=== PATIENT | female | born 1960 | race Caucasian/White ===

== ENCOUNTER → 2017-01-10 | Outpatient (CLI) | payer BC ==
--- NOTE | 2017-01-15 08:32 | MM ---
Reason for exam: screening (asymptomatic). Last mammogram was performed 7 years and 7 months ago. History: Patient is postmenopausal. Family history of breast cancer in sister at age 55. Physical Findings: A clinical breast exam by your physician is recommended on an annual basis and results should be correlated with mammographic findings. MG 3D Screening Mammo W/Cad Bilateral CC and MLO view(s) were taken. There are scattered fibroglandular densities. There is no discrete abnormality. ASSESSMENT: Benign, BI-RAD 2 RECOMMENDATION: Routine screening mammogram of both breasts in 1 year.
== END | disposition home or self-care (01) ==
LOC: RADMAMWWP 07:30
PROVIDERS: ATTEND Family Medicine
DX: Z12.31 Encounter for screening mammogram for malignant neoplasm of breast (principal)
CPT/HCPCS: 77063; G0202

== ENCOUNTER → 2020-10-05 | Outpatient (CLI) | payer BC ==
--- NOTE | 2020-10-05 12:14 | CT ---
EXAMINATION TYPE: CT soft tissue neck w con DATE OF EXAM: 10/05/2020 COMPARISON: None HISTORY: Rt sided neck swelling from ear to under chin, difficulty swallowing CT DLP: 387.9 mGycm CONTRAST: Patient injected with 100 mL of Isovue 300. TECHNIQUE: Axial images at 3 mm thick sections. Reconstructed images in the coronal plane and sagitt al plane are reviewed. FINDINGS: Limited CT sections are obtained the lung apices. The lung apices appear clear. CT neck: The torus tubarius and fossa of Rosenmuller are normal. Buttonhole Maker spaces are normal. Para nasal sinuses and mastoid air cells are clear. Parotid glands appear normal and symmetrical. There is some mild limitation due to beam hardening art ifact from piercings at this level. Dental hardware also causes limitation at the mandible and maxill a. Submandibular glands, are normal. Parapharyngeal spaces are normal. There are multiple small right supraclavicular and right neck lymph nodes. The largest measures up to 0.9 cm. Series 3 image 47. There is an enlarged jugulodigastric lymph node posterior to the right walker bmandibular gland measuring 1.8 cm transverse. Additional small lymph nodes within the submandibular space and posterior triangles are noted. The hypopharynx appears within normal limits. Vocal cord level appear symmetrical. Thyroid as visualized is normal. Osseous structures are normal. IMPRESSIONS: 1. Enlarged right cervical lymph node measuring 1.8 cm transverse. This lies behind the right submand ibular gland. 2. Additional small lymph nodes bilaterally greater on the right.
== END | disposition home or self-care (01) ==
LOC: RADCTMAIN 08:32
PROVIDERS: ATTEND Family Medicine
DX: R59.9 Enlarged lymph nodes, unspecified (principal)
CPT/HCPCS: 70491; Q9967

== ENCOUNTER → 2020-10-25 | Outpatient (CLI) | payer BC ==
--- NOTE | 2020-10-25 19:25 | CT ---
EXAMINATION TYPE: CT abdomen pelvis wo con DATE OF EXAM: 10/25/2020 HISTORY: abdominal pain, weight loss. CT DLP: 390 mGycm. Automated Exposure Control for Dose Reduction was Utilized. TECHNIQUE: CT scan of the abdomen and pelvis is performed without oral or IV contrast. COMPARISON: NONE FINDINGS: Within the limitations of a non-contrast study, the following observations are made. LUNG BASES: No significant abnormality is appreciated. LIVER/GB: Single dependent small gallstone in gallbladder axial image 60. PANCREAS: No significant abnormality is seen. SPLEEN: No significant abnormality is seen. ADRENALS: No significant abnormality is seen. KIDNEYS: No renal stones or hydronephrosis seen bilaterally. BOWEL: Suboptimal evaluation of bowel without enteric contrast. No suspicious small or large bowel di latation is present. Slightly low-lying cecum into right pelvis. GENITAL ORGANS: Uterus surgically absent or markedly atrophic. Single right-sided pelvic phlebolith a xial image 128. Additional small calcified phleboliths inferiorly noted. LYMPH NODES: Some prominent but subcentimeter mid to lower abdominal mesenteric and retroperitoneal l ymph nodes extending into bilateral groin region. No definitive abnormal greater than 1 cm lymph node s identified. OSSEOUS STRUCTURES: Multilevel facet arthropathy in the mid to lower lumbar spine. Mild to moderate s purring and disc space narrowing in the visualized mid to lower thoracic spine. OTHER: Moderate calcified plaque of the abdominal aorta extends into iliac branch vessels. IMPRESSION: Prominent but subcentimeter lymph nodes bilaterally without definitive abnormal greater t dennis 1 cm lymph nodes. No concerning mass clearly seen on noncontrast images. No acute findings eviden t.
== END ==
LOC: RADCTMAIN 17:40
PROVIDERS: ATTEND Family Medicine
DX: R59.0 Localized enlarged lymph nodes (principal)
CPT/HCPCS: 74176

== ENCOUNTER → 2020-10-31 | Outpatient (CLI) | payer BC ==
--- NOTE | 2020-10-31 08:33 | CTL ---
EXAMINATION TYPE: CT Low Dose Lung DATE OF EXAM ORDERED: 10/31/2020 HISTORY: Long-term tobacco use.. Lung cancer screening CT DLP: 79.[address] CTDI: 2.4 mGy Automated exposure control for dose reduction was used. SCREENING VISIT: Initial study COMPARISON: None TECHNIQUE: Low dose computed tomography scan was performed through the chest at 1 mm thick sections a nd reconstructed images in the coronal plane at [address] DIAGNOSTIC QUALITY: Satisfactory FINDINGS: LUNG NODULES: None. LUNGS: COPD: Severity: Mild Fibrosis: Severity: Mild Lymph nodes: No greater than 1 cm Other findings: None RIGHT PLEURAL SPACE: Effusion: None Calcification: None Thickening: None Pneumothorax: None LEFT PLEURAL SPACE: Effusion: None Calcification: None Thickening: None Pneumothorax: None HEART: Heart Size: Normal Coronary calcification: None Pericardial effusion: None OTHER FINDINGS: Upper abdomen: None Bony thorax: Exaggerated kyphosis with mild/moderate multilevel spurring Supraclavicular region: Prominent but subcentimeter right-sided lymph nodes noted. For reference ther e is 1.1 x 0.9 cm lymph node axial image 14 series 3. Other: None IMPRESSION: No suspicious nodules. CT LUNG RAD AND CT CHEST RECOMMENDATION: Lung-Rad 1 Negative: Continue annual screening with LDCT in 12 months. S Modifier (other clinically significant findings): S Prominent but subcentimeter right supraclavicular lymph nodes. This was discussed on recent neck CT w ith additional prominent and enlarged more superior right-sided neck lymph nodes. Neoplasm needs to b e considered. Suspect primary right tongue base mass seen best coronal image 27 with adjacent slightl y more inferior right neck adenopathy discussed in report. Advise ENT referral to further evaluate.
== END ==
LOC: RADCTMAIN 07:39
PROVIDERS: ATTEND Family Medicine
DX: Z12.2 Encounter for screening for malignant neoplasm of respiratory organs (principal); Z87.891 Personal history of nicotine dependence
CPT/HCPCS: 71271

== ENCOUNTER 2020-12-14 09:02 | Day surgery (SDC) | payer BC ==
[2020-12-12 10:53] VITALS: BMI 26.4
[~2020-12-14 09:02] MED LIST: DEXAMETHASONE SOD PHOSPHATE 4 MG/ML 1 ML VIAL IV ONE; FAMOTIDINE 20 MG/2 ML VIAL IV PRN; HYDROmorphone 0.5 MG/0.5 ML SYRINGE IVP PRN; LACTATED RINGERS 1,000 ML IV SCH; LIDOCAINE 1% (10MG/ML) FOR IV START INTRADERMA PRN; MIDAZOLAM 2 MG/2 ML VIAL IV PRN; ONDANSETRON 4 MG/2 ML VIAL IVP PRN
[2020-12-14] MEDS ORDERED: MIDAZOLAM 2 MG/2 ML VIAL ONE (10:14)
[2020-12-14] MEDS ORDERED: PROPOFOL 10 MG/ML 20 ML VIAL IV ONE (10:14)
[2020-12-14] MEDS ORDERED: fentaNYL (PF) 50 MCG/ML 2 ML AMP ONE (10:14)
[2020-12-14] MEDS ORDERED: LIDOCAINE 1% INJ 10MG/ML (20 ML MDV) ONE (10:14)
[2020-12-14] MEDS ORDERED: LIDOCAINE 1%-EPI 1:100,000 20 ML VIAL SQ ONE (10:35)
[2020-12-14] MEDS ORDERED: BACITRACIN ZINC 500 UNIT/GM OINT 28.4 GM TUBE TOPICAL ONE ×2 (10:40→11:13)
--- NOTE | 2020-12-14 11:22 | P.OP ---
Date of Procedure: 12/14/20 Preoperative Diagnosis: Right cervical lymphadenopathy Postoperative Diagnosis: Same Procedure(s) Performed: Excision right cervical lymph node deep Anesthesia: NIELS Surgeon: John Montalvo Estimated Blood Loss (ml): 5 Pathology: other (Right cervical lymph node) Condition: stable Disposition: PACU Indications for Procedure: This is a 60-year-old white female with a chronically enlarged right jugular chain lymph node. Fine-needle aspiration had relatively heterogenous cells h owever low-grade lymphoma could not be ruled out Operative Findings: Approximately 3.5 x 2.5 cm right mid jugular chain node which was well encapsulated firm and fixed to the surrounding tissues although was able to dissected from the surrounding tissues grossly entirely Description of Procedure: The patient was brought in the operative suite and placed in a supine position. The patient underwent induction of general anesthesia with laryngeal mask airway intubation without difficulty. The patient was prepped and draped in usual aseptic fashion after being positioned with a head donut and shoulder roll. A transverse incision was made over the mass in existing skin crease which was in the cervical area and carried sharply through the skin and subcutaneous tissue as well as platysma layer. Mass was noted at this point. This appeared to be consistent with a large cervical lymph node. This was initially dissected from the anterior aspect of the sternocleidomastoid muscle. It was dissected directly on the capsule from the surrounding tissue grossly entirely down to the external jugular vein and was dissected from this. The spinal accessory nerve was noted to be superior to the node and was left intact. Once the node was dissected from the surrounding tissue hemostasis was noted to be good. The wound was irrigated with sterile normal saline and hemostasis remained good. The platysma and deep subcutaneous layers were closed with inverted interrupted 3-0 Vicryl suture. The subcutaneous tissue was closed with 4-0 Vicryl suture and the skin closed with running locking 4-0 Prolene suture. Bacitracin ointment and sterile dressings were. The patient was allowed to emerge from general anesthesia having tolerated procedure well and was extubated in the operating suite and transferred to the postop recovery area in satisfactory condition. The specimen sent fresh for histology, touch preps, flow cytometry as this grossly suspicious for lymphoma.
[2020-12-14 11:32] VITALS: TEMP 97.1
[2020-12-14] MEDS ORDERED: KETOROLAC 15 MG/ML 1 ML VIAL IVP ONE (11:32)
[2020-12-14] MEDS ORDERED: LACTATED RINGERS 1,000 ML IV ONE (12:12)
[2020-12-14 12:50] VITALS: BP 128/82; PULSE 63; RESP 16
== END 2020-12-14 13:23 | disposition home or self-care (01) ==
LOC: OR 09:02
PROVIDERS: ATTEND Otolaryngology
DX: C83.11 Mantle cell lymphoma, lymph nodes of head, face, and neck (principal); I10 Essential (primary) hypertension; F17.200 Nicotine dependence, unspecified, uncomplicated; Z90.710 Acquired absence of both cervix and uterus; Z90.89 Acquired absence of other organs; Z81.8 Family history of other mental and behavioral disorders; Z82.49 Family history of ischemic heart disease and other diseases of the circulatory system; Z82.61 Family history of arthritis; Z80.3 Family history of malignant neoplasm of breast; Z80.0 Family history of malignant neoplasm of digestive organs; Z83.3 Family history of diabetes mellitus; Z84.1 Family history of disorders of kidney and ureter; Z79.891 Long term (current) use of opiate analgesic; Z79.899 Other long term (current) drug therapy
CPT/HCPCS: 88342; 88307; 88341; 38510; J2250; J1100; J2405; J0690; J2001; J3010; J1885; J2704; J1170

== ENCOUNTER → 2020-12-30 | Outpatient (CLI) | payer BC ==
--- NOTE | 2021-01-02 13:28 | PE ---
Nuclear medicine PET/CT HISTORY: Mantle cell lymphoma right neck, initial, C 83.18 Patient received 11.4 mCi F-18 FDG intravenously in delayed scanning was performed from skull base to the mid thighs. Localization and attenuation correction CT scan was performed. Correlation to CT scan of the neck 10/05/2020, CT abdomen pelvis 10/25/2020 Chest and neck: Right-sided neck lymphadenopathy is present, there is mild associated uptake, node de ep to the sternocleidomastoid muscle posteriorly on the right shows an SUV of 3.1, multiple nodes at the level of the hyoid bone along the right neck show SUV approximately 3.3. Axillary uptake is also mild, nodes are somewhat more prominent in the right axilla than on the left, SUV 2.1 on the right, 2 .3 on the left. There is no evident lung mass. No pleural or pericardial effusion. ABDOMEN: No retroperitoneal or pelvic adenopathy is present. There is some mesenteric nodes present, no significant uptake. Inguinal nodes present on the left showing mild uptake, SUV 1.4. There is no a scites. Uterus and adnexal structures are not seen. Osseous structures show no suspicious uptake. IMPRESSION: Findings consistent with patient's history of lymphoma.
== END | disposition home or self-care (01) ==
LOC: RADPETMAIN 10:35
PROVIDERS: ATTEND Internal Medicine Hematology & Oncology
DX: C83.18 Mantle cell lymphoma, lymph nodes of multiple sites (principal)
CPT/HCPCS: 78815; A9552

== ENCOUNTER 2021-01-03 12:16 | Day surgery (SDC) | payer BC ==
[2020-12-30 13:42] VITALS: BMI 26.9
[~2021-01-03 12:16] MED LIST changes: -DEXAMETHASONE SOD PHOSPHATE 4 MG/ML 1 ML VIAL IV ONE; -FAMOTIDINE 20 MG/2 ML VIAL IV PRN; -HYDROmorphone 0.5 MG/0.5 ML SYRINGE IVP PRN; -LIDOCAINE 1% (10MG/ML) FOR IV START INTRADERMA PRN; -MIDAZOLAM 2 MG/2 ML VIAL IV PRN
[2021-01-03 12:20] VITALS: TEMP 96.8
[2021-01-03] MEDS ORDERED: LIDOCAINE 1% (10MG/ML) FOR IV START INTRADERMA ONE (12:26)
[2021-01-03] MEDS ORDERED: PROPOFOL 10 MG/ML 20 ML VIAL IV ONE (12:36)
[2021-01-03 13:17] LABS: Basophils # (A) 0.1 k/uL (0-0.2); Basophils % (A) 1 %; Eosinophils # (A) 0.1 k/uL (0-0.7); Eosinophils % (A) 1 %; HCT 43.5 % (34.0-46.0); Lymphocytes # (A) 2.2 k/uL (1.0-4.8); Lymphocytes % (A) 28 %; MCH 30.7 pg (25.0-35.0); MCHC 32.2 g/dL (31.0-37.0); MCV 95.2 fL (80.0-100.0); Mean Platelet Volume 8.5; Monocytes # (A) 0.5 k/uL (0-1.0); Monocytes % (A) 7 %; Neutrophils # (A) 4.8 k/uL (1.3-7.7); Neutrophils % (A) 61 %; Platelet Count 238 k/uL (150-450); RBC 4.57 m/uL (3.80-5.40); Reticulocyte % 1.2 % (0.5-2.0); WBC 7.8 k/uL (3.8-10.6)
[2021-01-03 13:33] VITALS: BP 118/66; PULSE 78; RESP 20
--- NOTE | 2021-01-03 16:08 | PCN ---
PROCEDURE NOTE DATE OF SERVICE: January 03, 2021. PROCEDURE: Bone marrow aspirate and biopsy. INDICATION: Staging for Mantle cell lymphoma. DESCRIPTION OF PROCEDURE: After obtaining consent from the patient, the procedure was performed in the endoscopy suite under general anesthesia performed by anesthesia team. The patient was put on the left lateral decubital position. The right posterior superior iliac crest was localized. Skin was prepped with ChloraPrep. All sterile procedures were followed and 2 mL of 2% Xylocaine was used for local anesthesia anesthetic. Monoject needle was inserted and 15 mL of aspirate and about 2 cm core biopsy was obtained without any difficulties. Pressure applied afterwards. There was negligible blood loss. Patient tolerated procedure very well without any immediate complications. MMODL / IJN: [id number] /
== END 2021-01-03 13:52 | disposition home or self-care (01) ==
LOC: OR 12:16
PROVIDERS: ATTEND Internal Medicine Hematology & Oncology
DX: C83.10 Mantle cell lymphoma, unspecified site (principal); C85.90 Non-Hodgkin lymphoma, unspecified, unspecified site; I10 Essential (primary) hypertension; M79.7 Fibromyalgia; Z90.89 Acquired absence of other organs; Z90.710 Acquired absence of both cervix and uterus; Z98.890 Other specified postprocedural states; Z85.528 Personal history of other malignant neoplasm of kidney; Z80.0 Family history of malignant neoplasm of digestive organs; Z80.8 Family history of malignant neoplasm of other organs or systems; Z80.3 Family history of malignant neoplasm of breast; Z86.19 Personal history of other infectious and parasitic diseases; F17.210 Nicotine dependence, cigarettes, uncomplicated
CPT/HCPCS: 85025; 85045; 38222; J2704

== ENCOUNTER → 2021-01-20 | Outpatient (CLI) | payer BC ==
--- NOTE | 2021-01-20 20:38 | US ---
EXAMINATION TYPE: US venous doppler duplex LE DATE OF EXAM: 01/20/2021 4:28 PM COMPARISON: NONE CLINICAL HISTORY: R22.42 Swelling of left lower limb,R22.41 Swelling of right. SIDE PERFORMED: Bilateral TECHNIQUE: The lower extremity deep venous system is examined utilizing real time linear array sonog mirna with graded compression, doppler sonography and color-flow sonography. VESSELS IMAGED: Common Femoral Vein Deep Femoral Vein Greater Saphenous Vein * Femoral Vein Popliteal Vein Small Saphenous Vein * Proximal Calf Veins (* superficial vessels) Right Leg: Negative for DVT Left Leg: Negative for DVT IMPRESSION: Grayscale, color doppler, spectral doppler imaging performed of the deep veins of the lo wer extremities. There is normal flow, compressibility, vascular waveforms.
== END | disposition home or self-care (01) ==
LOC: RADUSWWP 15:49
PROVIDERS: ATTEND Internal Medicine Hematology & Oncology
DX: R22.43 Localized swelling, mass and lump, lower limb, bilateral (principal)
CPT/HCPCS: 93970

== ENCOUNTER → 2021-03-31 | Outpatient (CLI) | payer BC ==
--- NOTE | 2021-04-03 06:27 | PE ---
EXAMINATION TYPE: PET CT fusion skull to thigh DATE OF EXAM: 03/31/2021 COMPARISON: Prior PET/CT December 30, 2020 HISTORY: Mantle cell lymphoma right neck diagnosed surgical excision December 14, 2020 treated with alexus motherapy through March 25. TECHNIQUE: Following the intravenous administration of 8.29 mCi of F-18 FDG, whole body images are p erformed from the skull base to the midthigh. Images are reviewed on the computer in the coronal, ax ial, and sagittal planes. Reconstructed rotating images are created on independent workstation and r eviewed on the computer. A localization and attenuation correction CT is performed in conjunction w ith the PET scan. Blood glucose level equals 104 SCAN: Subsequent Scan FINDINGS: Mean SUV mediastinum: 0.73 Mean SUV liver: 1.87 SKULL BASE AND NECK: No suspicious hypermetabolic lymph nodes on current study. Prominent right neck and supraclavicular adenopathy redemonstrated though diminished in size and number from prior study. CHEST, MEDIASTINUM, AND HILAR REGION: Interval improvement in size and number of prominent bilateral axillary lymph nodes. No abnormal hypermetabolic uptake currently. No new areas of abnormal hypermeta bolic uptake throughout the thorax. ABDOMEN AND PELVIS: No new areas of abnormal hypermetabolic uptake. Normal excretion. OSSEOUS STRUCTURES: No new areas of abnormal hypermetabolic uptake. OTHER CT: Facet arthropathy lower lumbar spine slight scoliotic curvature. Moderate calcified plaque distal abdominal aorta extends into the iliac branch vessels. IMPRESSION: Complete positive treatment response, no new or residual areas of abnormal hypermetabolic uptake or adenopathy.
== END | disposition home or self-care (01) ==
LOC: RADPETMAIN 13:31
PROVIDERS: ATTEND Internal Medicine Hematology & Oncology
DX: C83.11 Mantle cell lymphoma, lymph nodes of head, face, and neck (principal)
CPT/HCPCS: 78815; A9552

== ENCOUNTER 2021-04-25 08:56 | Inpatient (IN) | payer BC ==
[2021-04-25] MEDS ORDERED: LIDOCAINE 1% INJ 10MG/ML (20 ML MDV) SQ ONE (10:42)
[2021-04-25 11:13] LABS: Basophils % (A) 1 %; Eosinophils # (A) 0.1 k/uL (0-0.7); Eosinophils % (A) 2 %; HCT 36.9 % (34.0-46.0); HGB 12.9 gm/dL (11.4-16.0); Lymphocytes # (A) 0.4 k/uL (1.0-4.8); Lymphocytes % (A) 6 %; MCH 34.7 pg (25.0-35.0); MCV 99.1 fL (80.0-100.0); Mean Platelet Volume 9.5; Monocytes # (A) 0.5 k/uL (0-1.0); Monocytes % (A) 8 %; Neutrophils # (A) 5.1 k/uL (1.3-7.7); Neutrophils % (A) 82 %; Platelet Count 157 k/uL (150-450); RBC 3.72 m/uL (3.80-5.40); RDW 12.9 % (11.5-15.5); WBC 6.3 k/uL (3.8-10.6)
[2021-04-25 11:20] LABS: ALT 23 U/L (4-34); AST 28 U/L (14-36); African American GFR (CKD) >90 (>60 ml/min/1.73 sqM); Albumin/Globulin Ratio 1.7; Alkaline Phosphatase 116 U/L (38-126); Anion Gap 6 mmol/L; Blood Urea Nitrogen 18 mg/dL (7-17); Calcium 9.7 mg/dL (8.4-10.2); Carbon Dioxide 30 mmol/L (22-30); Chloride 102 mmol/L (98-107); Globulin 2.4 g/dL; Glucose 99 mg/dL (74-99); Non-African American GFR(CKD) >90 (>60 ml/min/1.73 sqM); Phosphorus 3.6 mg/dL (2.5-4.5); Potassium 4.6 mmol/L (3.5-5.1); Sodium 138 mmol/L (137-145); Total Bilirubin 0.4 mg/dL (0.2-1.3); Total Protein 6.4 g/dL (6.3-8.2); Uric Acid 4.2 mg/dL (3.7-7.4)
[2021-04-25 11:30] LABS: INR 0.9 (<1.2); Prothrombin Time 9.5 sec (9.0-12.0)
[2021-04-25] MEDS ORDERED: NON FORMULARY DRUG (Epinephrine (Auto Inject) 0.3 MG/0.3 ML Each) IM PRN (12:06)
[2021-04-25] MEDS: prednisoLONE ACETATE 1% OPHTH DROPS 5 ML BTL BOTH EYES SCH ×4 (12:28→21:37)
[2021-04-25] MEDS: SODIUM CHLORIDE 0.9% 1,000 ML IV SCH ×2 (12:29→21:36)
--- NOTE | 2021-04-25 13:26 | IR ---
PICC LINE PLACEMENT: HISTORY: Infection requiring long-term antibiotic therapy PROCEDURE: Ultrasound and fluoroscopic guidance of PICC line placement. COMPLICATIONS: None ANESTHESIA: 1. 1% Lidocaine locally. FINDINGS/TECHNIQUE: The procedure was explained to the patient. The risks, complications, benefits and alternatives were discussed and any questions were answered. Informed consent was obtained. The patient was placed supine on the fluoroscopic table and prepped and draped in the usual sterile fash ion. Utilizing a 21 gauge needle and sonographic and fluoroscopic guidance, access in the right bas ilic vein was achieved and there is placement of a 0.018 guidewire. The vein is patent. A 4-F sheat h was placed over the guidewire. The guidewire and dilator were removed and a 4-F. PICC line was wilmar michael through the sheath with the tip at the level of the SVC. The sheath was removed, the catheter wa s flushed and sutured into position. The patient was stable throughout the procedure and remained st able upon discharge from the Department of Radiology. The vein puncture was patent under ultrasound. A chau scale image was obtained to document patency of the vein punctured. All elements of the maximal barrier technique were utilized. FLUOROSCOPY TIME: 0.3 minutes and one images submitted IMPRESSION: Successful PICC line placement under ultrasound and fluoroscopic guidance.
[2021-04-25] MEDS: NON FORMULARY DRUG (Buprenorphine Hcl/Naloxone Hcl [Suboxone 8 Mg-2 Mg Sl Film] 1 EACH Fil SUBLINGUAL SCH ×2 (14:45→21:31)
[2021-04-25] MEDS ORDERED: methylPREDNISolone SOD SUCCI 125 MG/2 ML VIAL IV ONE (15:00)
[2021-04-25] MEDS ORDERED: diphenhydrAMINE 50 MG/ML 1 ML VIAL IVP ONE (15:00)
[2021-04-25] MEDS ORDERED: ONDANSETRON 16 MG in SODIUM CHLORIDE 0.9% 50 ML IVPB SCH (15:00)
[2021-04-25] MEDS ORDERED: FAMOTIDINE 20 MG/2 ML VIAL IV SCH (15:00)
[2021-04-25] MEDS ORDERED: RITUXIMAB PVVR IV ONE (16:00)
[2021-04-25] MEDS ORDERED: SODIUM CHLORIDE 0.9% IV ONE (16:00)
--- NOTE | 2021-04-25 20:45 | P.HPIM ---
History of Present Illness H&P Date: 04/25/21 Chief Complaint: Timed Chemotherapy Clare is a pleasant female known to our practice, under the care of Dr. Corea (Primary Oncologist) for treatment of Mantel Cell Lymphoma. She is status post treatment with Bendamustine and Rituxan and PET scan in March revealed complete response after 3 cycles, therefore she is now admitted for systemic treatment with Rituxan and Cytarabine. Plan for Stem cell with Dr. Diamond post 3 cycles is goal. She has no complaints when seen this am, she is overall feeling good. at bedside. Picc line order has been placed. Review of Systems All systems: negative Constitutional: Reports as per HPI Past Medical History Past Medical History: Cancer, Fibromyalgia, GERD/Reflux, Hypertension, Sleep Apnea/CPAP/BIPAP Additional Past Medical History / Comment(s): Mantel cell lymphoma, CLAUDIA-no treatment since wt loss, suboxone is for fibromyalgia pain. History of Any Multi-Drug Resistant Organisms: None Reported Past Surgical History: Appendectomy, Bladder Surgery, Hysterectomy, Orthopedic Surgery Additional Past Surgical History / Comment(s): 12/14/20 excision R cervical lymph node, 01/03/21 BMA with biopsy, bilateral knee arthroscopies, R foot surgery for plantar fascitis, eye surgery for strabismus, colonoscopy. Past Anesthesia/Blood Transfusion Reactions: No Reported Reaction Smoking Status: Former smoker - Past Family History Father Sister(s) Family Medical History: Cancer Additional Family Medical History / Comment(s): father - kidney cancer survivor Brother(s) Family Medical History: Cancer Additional Family Medical History / Comment(s): colon cancer survivor Sister(s) Family Medical History: Cancer Additional Family Medical History / Comment(s): breast cancer survivor Mother Family Medical History: No Reported History Additional Family Medical History / Comment(s): Mother is 87yrs old. Medications and Allergies Home Medications Medication Instructions Recorded Confirmed Type Buprenorphine HCl/Naloxone HCl 1 film SL TID 12/12/20 04/25/21 History [Suboxone 8 mg-2 mg Sl Film] Chlorthalidone [Hygroton] 25 mg PO DAILY 12/12/20 04/25/21 History Lisdexamfetamine Dimesylate 100 mg PO DAILY 12/12/20 04/25/21 History [Vyvanse] Eszopiclone [Lunesta] 3 mg PO HS 12/30/20 04/25/21 History EPINEPHrine (Auto Inject) [Epipen] 0.3 mg IM ONCE PRN 04/25/21 04/25/21 History Nicotine 14Mg/24Hr Patch [Habitrol 1 patch TRANSDERM DAILY 04/25/21 04/25/21 History 14Mg/24Hr Patch] Allergies Allergy/AdvReac Type Severity Reaction Status Date / Time bee venom protein (honey bee) Allergy Anaphylaxis Verified 04/25/21 10:06 Physical Exam Vitals: Vital Signs Temp Pulse Resp BP Pulse Ox 04/25/21 11:25 98.1 F 68 16 117/69 98 04/25/21 10:10 97.9 F 70 14 109/70 99 Intake and Output 04/24/21 04/25/21 04/25/21 22:59 06:59 14:59 Other: Weight 72.167 kg - Constitutional General appearance: cooperative, no acute distress - EENT Eyes: EOMI, PERRLA ENT: NA/AT, normal oropharynx - Neck Neck: normal ROM - Respiratory Respiratory: bilateral: CTA - Cardiovascular Rhythm: regular - Gastrointestinal General gastrointestinal: normal bowel sounds, soft - Integumentary Integumentary: pale - Neurologic Neurologic: CNII-XII intact - Musculoskeletal Musculoskeletal: generalized weakness - Psychiatric Psychiatric: A&O x's 3, appropriate affect, intact judgment & insight Results CBC & Chem 7: 04/25/21 10:17 04/25/21 10:17 Labs: Abnormal Lab Results - Last 24 Hours (Table) 04/25/21 04/25/21 Range/Units 10:17 10:17 RBC 3.72 L (3.80-5.40) m/uL Lymphocytes # 0.4 L (1.0-4.8) k/uL BUN 18 H (7-17) mg/dL Thrombosis Risk Factor Assmnt - DVT/VTE Prophylaxis DVT/VTE Prophylaxis: Mechanical Prophylaxis ordered - Choose All That Apply Any of the Below Risk Factors Present?: Yes Each Factor Represents 1 point: Age 41-60 years Other Risk Factors: Yes Each Risk Factor Represents 2 Points: Malignancy Other congenital or acquired thrombophilia - If yes, enter type in comment: No Thrombosis Risk Factor Assessment Total Risk Factor Score: 3 Thrombosis Risk Factor Assessment Level: Moderate Risk Assessment and Plan (1) Mantle cell lymphoma Current Visit: Yes Status: Acute Code(s): C83.10 - MANTLE CELL LYMPHOMA, UNSPECIFIED SITE SNOMED Code(s): 004124805 Plan: Rituxan and Cytarabine Day one to begin CBC, CMP, Mag, Phos, LDH Daily Increased activity PPI and VTE Medical Management Picc Line Placement Physician Attest: I have completed the full history and physical and developed the full impression and plan, agree with dictation.
[2021-04-25] MEDS: CYTARABINE IV SCH (21:36)
[2021-04-25] MEDS: SODIUM CHLORIDE 0.9% IV SCH (21:36)
[2021-04-25] MEDS: TEMAZEPAM 15 MG CAP PO SCH (22:55)
[2021-04-26] MEDS: SODIUM CHLORIDE 0.9% 1,000 ML IV SCH ×2 (06:02→16:54)
[2021-04-26 07:37] LABS: Basophils % (A) 0 %; Eosinophils % (A) 0 %; HCT 36.7 % (34.0-46.0); HGB 12.7 gm/dL (11.4-16.0); Lymphocytes # (A) 0.5 k/uL (1.0-4.8); Lymphocytes % (A) 4 %; MCH 34.7 pg (25.0-35.0); MCHC 34.7 g/dL (31.0-37.0); Mean Platelet Volume 10.8; Monocytes # (A) 0.8 k/uL (0-1.0); Monocytes % (A) 7 %; Neutrophils # (A) 10.2 k/uL (1.3-7.7); Neutrophils % (A) 88 %; Platelet Count 138 k/uL (150-450); RBC 3.67 m/uL (3.80-5.40); RDW 12.8 % (11.5-15.5); WBC 11.7 k/uL (3.8-10.6)
[2021-04-26] MEDS ORDERED: LORazepam 2 MG/ML INJ IV PRN (08:28)
[2021-04-26] MEDS ORDERED: ONDANSETRON 4 MG/2 ML VIAL IVP PRN (08:28)
[2021-04-26] MEDS: NON FORMULARY DRUG (Buprenorphine Hcl/Naloxone Hcl [Suboxone 8 Mg-2 Mg Sl Film] 1 EACH Fil SUBLINGUAL SCH ×3 (08:56→20:58)
[2021-04-26] MEDS: NON FORMULARY DRUG (Lisdexamfetamine Dimesylate [Vyvanse] 50 MG Capsule) PO SCH (08:57)
[2021-04-26] MEDS: CHLORTHALIDONE 25 MG TAB PO SCH (09:21)
[2021-04-26] MEDS: NICOTINE 14MG/24HR PATCH TRANSDERM SCH (09:21)
[2021-04-26] MEDS: prednisoLONE ACETATE 1% OPHTH DROPS 5 ML BTL BOTH EYES SCH ×4 (09:21→21:03)
[2021-04-26] MEDS ORDERED: ONDANSETRON 16 MG in SODIUM CHLORIDE 0.9% 50 ML IVPB SCH (09:30)
[2021-04-26] MEDS ORDERED: FAMOTIDINE 20 MG/2 ML VIAL IV SCH (10:30)
[2021-04-26] MEDS: SODIUM CHLORIDE 0.9% IV SCH ×2 (10:38→21:36)
[2021-04-26] MEDS: CYTARABINE IV SCH ×2 (10:38→21:36)
[2021-04-26] MEDS: SALT AND SODA MOUTHWASH 1,000 ML PO SCH ×4 (11:38→21:03)
[2021-04-26] MEDS: SENNOSIDES-DOCUSATE SODIUM 1 EACH TAB PO SCH ×2 (11:43→20:57)
--- NOTE | 2021-04-26 12:14 | P.PN ---
Subjective Progress Note Date: 04/26/21 Principal diagnosis: Mantel Cell Lymphoma, Timed Consolidation Chemo. Pre Stem Cell Transplant Tolerating treatment well this far. Increase in supportive medications prior to each chemotherapy dose ordered, neuro checks and salt and soda rinse ordered. Awaiting for CMP to result today Objective - Vital Signs Vital signs: Vital Signs Temp 98.3 F 04/26/21 04:00 Pulse 71 04/26/21 04:00 Resp 18 04/26/21 04:00 BP 109/62 04/26/21 04:00 Pulse Ox 95 04/26/21 04:00 Intake & Output 04/25/21 04/26/21 04/26/21 18:59 06:59 18:59 Intake Total 368.940 5802 Balance 700.685 5028 Weight 72.167 kg Intake: Intake, IV Titration 276.343 3040 Amount Cytarabine/Pf 3,000 mg 500 Cytarabine/Pf 500 mg In Sodium Chloride 0.9% 500 ml 500 ml @ 185 mls/hr IV Q12H [facility] Rx#:[id number] Ondansetron 16 mg In 50 Sodium Chloride 0.9% 50 ml @ 232 mls/hr IVPB Q24H [facility] Rx#:[id number] Sodium Chloride 0.9% 1, 500 1200 000 ml @ 100 mls/hr IV . Q10H [facility] Rx#:[id number] riTUXimab PVVR 700 mg In 332.391 Sodium Chloride 0.9% 500 ml 500 ml @ Titrate IV . Q0M [facility] Rx#:[id number] Oral 500 Other: Voiding Method Toilet Toilet # Voids 3 4 - Exam Alert and Oriented x3 NAD Neck:Supple ENT: Dry Mucous Membranes, no thrush or mucocytitis Heart: RRR Lungs: CTA Bilateral, No increased effort Abdomen: Soft, ND, NT Skin: No rashes Extremities: No Edema, Positive Pulses No Palpable Lymph Nodes Psych: Anxious Neuro: Non-Focal - Labs CBC & Chem 7: 04/26/21 06:57 04/25/21 10:17 Labs: Abnormal Lab Results - Last 24 Hours (Table) 04/25/21 04/25/21 04/26/21 Range/Units 10:17 10:17 06:57 WBC 11.7 H (3.8-10.6) k/uL RBC 3.72 L 3.67 L (3.80-5.40) m/uL Plt Count 138 L (150-450) k/uL Neutrophils # 10.2 H (1.3-7.7) k/uL Lymphocytes # 0.4 L 0.5 L (1.0-4.8) k/uL BUN 18 H (7-17) mg/dL Assessment and Plan (1) Mantle cell lymphoma Current Visit: Yes Status: Acute Code(s): C83.10 - MANTLE CELL LYMPHOMA, UNSPECIFIED SITE SNOMED Code(s): 711131098 Plan: Rituxan and Cytarabine Day one to begin CBC, CMP, Mag, Phos, LDH Daily Increased activity PPI and VTE (Pneumatic compression and encourage out of bed and walking) Medical Management Picc Line Placement on 04.25.21 Tolerated day one of treatment well, continue with day 2 Await CMP, Mg, Phos, Uric acid, LDH to result today Encourage patient to continue to walk and increase activity Physician Attest: I have completed the full history and physical and developed the full impression and plan, agree with dictation.
[2021-04-26 13:31] LABS: Magnesium 1.6 mg/dL (1.5-2.4)
[2021-04-26 13:52] LABS: African American GFR (CKD) 93.5 (60.0-200.0); Albumin 3.7 g/dL (3.80-4.90); Albumin/Globulin Ratio 1.95 (1.60-3.17); Anion Gap 4.9 mmol/L (4.00-12.00); Calcium 9.1 mg/dL (8.7-10.3); Carbon Dioxide 28.1 mmol/L (21.6-31.8); Globulin 1.9 g/dL (1.6-3.3); Non-African American GFR(CKD) 80.7 (60.0-200.0); Phosphorus 4.5 mg/dL (2.4-5.1); Potassium 4.4 mmol/L (3.5-5.5); Total Bilirubin 0.3 mg/dL (0.2-1.2); Total Protein 5.6 g/dL (6.2-8.2); Uric Acid 4.3 mg/dL (2.9-7.7)
--- NOTE | 2021-04-26 15:26 | P.CONS ---
History of Present Illness - Reason for Consult Consult date: 04/26/21 Medical management Requesting physician: Kiana Corea - History of Present Illness This is a 60-year-old female with past medical history significant for mantle cell lymphoma who is currently admitted to the hospital for systemic treatment with Rituxan. I was asked to see her for medical management. Patient does not have any complaint at this time. Review of Systems Review of system: 14 points review of systems were obtained and were negative except to what were mentioned in the HPI. Past Medical History Past Medical History: Cancer, Fibromyalgia, GERD/Reflux, Hypertension, Sleep Apnea/CPAP/BIPAP Additional Past Medical History / Comment(s): Mantel cell lymphoma, CLAUDIA-no treatment since wt loss, suboxone is for fibromyalgia pain. History of Any Multi-Drug Resistant Organisms: None Reported Past Surgical History: Appendectomy, Bladder Surgery, Hysterectomy, Orthopedic Surgery Additional Past Surgical History / Comment(s): 12/14/20 excision R cervical lymph node, 01/03/21 BMA with biopsy, bilateral knee arthroscopies, R foot surgery for plantar fascitis, eye surgery for strabismus, colonoscopy. Past Anesthesia/Blood Transfusion Reactions: No Reported Reaction Smoking Status: Former smoker - Past Family History Father Sister(s) Family Medical History: Cancer Additional Family Medical History / Comment(s): father - kidney cancer survivor Brother(s) Family Medical History: Cancer Additional Family Medical History / Comment(s): colon cancer survivor Sister(s) Family Medical History: Cancer Additional Family Medical History / Comment(s): breast cancer survivor Mother Family Medical History: No Reported History Additional Family Medical History / Comment(s): Mother is 87yrs old. Medications and Allergies Home Medications Medication Instructions Recorded Confirmed Type Buprenorphine HCl/Naloxone HCl 1 film SL TID 12/12/20 04/25/21 History [Suboxone 8 mg-2 mg Sl Film] Chlorthalidone [Hygroton] 25 mg PO DAILY 12/12/20 04/25/21 History Lisdexamfetamine Dimesylate 100 mg PO DAILY 12/12/20 04/25/21 History [Vyvanse] Eszopiclone [Lunesta] 3 mg PO HS 12/30/20 04/25/21 History EPINEPHrine (Auto Inject) [Epipen] 0.3 mg IM ONCE PRN 04/25/21 04/25/21 History Nicotine 14Mg/24Hr Patch [Habitrol 1 patch TRANSDERM DAILY 04/25/21 04/25/21 History 14Mg/24Hr Patch] Allergies Allergy/AdvReac Type Severity Reaction Status Date / Time bee venom protein (honey bee) Allergy Anaphylaxis Verified 04/25/21 10:06 Physical Exam Vitals: Vital Signs Temp Pulse Resp BP Pulse Ox 04/26/21 12:00 98.2 F 67 18 116/72 99 04/26/21 08:00 97.9 F 72 18 122/71 96 04/26/21 04:00 98.3 F 71 18 109/62 95 04/26/21 00:00 97.9 F 70 18 112/70 94 L 04/25/21 21:40 98.4 F 64 18 112/74 96 04/25/21 20:00 98.4 F 64 16 121/71 97 04/25/21 19:55 64 18 04/25/21 16:00 97.9 F 64 14 116/71 96 Intake and Output 04/26/21 04/26/21 04/26/21 06:59 14:59 22:59 Intake Total 2200 Balance 2200 Intake: Intake, IV Titration 1700 Amount Cytarabine/Pf 3,000 mg 500 Cytarabine/Pf 500 mg In Sodium Chloride 0.9% 500 ml 500 ml @ 185 mls/hr IV Q12H [facility] Rx#:[id number] Sodium Chloride 0.9% 1, 1200 000 ml @ 100 mls/hr IV . Q10H [facility] Rx#:[id number] Oral 500 Other: # Voids 4 General: The patient is awake and alert, in no distress Eye: there is normal conjunctiva bilaterally. Neck: The neck is supple, there is no JVD. Cardiovascular: Normal S1-S2, no S3-S4, no murmurs. Respiratory: Lungs clear to auscultation bilaterally Gastrointestinal: Abdomen is soft, nontender Musculoskeletal: There is no pedal edema. Neurological:. Speech is normal. Skin: Skin is warm and dry Results CBC & Chem 7: 04/26/21 06:57 04/26/21 06:57 Labs: Abnormal Lab Results - Last 24 Hours (Table) 04/26/21 04/26/21 Range/Units 06:57 06:57 WBC 11.7 H (3.8-10.6) k/uL RBC 3.67 L (3.80-5.40) m/uL Plt Count 138 L (150-450) k/uL Neutrophils # 10.2 H (1.3-7.7) k/uL Lymphocytes # 0.5 L (1.0-4.8) k/uL Glucose 129 H (70-110) mg/dL Alkaline Phosphatase 139 H (41-126) U/L Total Protein 5.6 L (6.2-8.2) g/dL Albumin 3.70 L (3.80-4.90) g/dL Assessment and Plan Assessment: 1. Mantle cell lymphoma currently admitted to the hospital for systemic treatment with Rituxan and cytarabine. Management per hematology 2. Mild Thrombocytopenia Today, I reviewed her medication list and lab work results. Continue current regimen. Thank you very much for the consultation. We will follow-up on the patient closely with you.
[2021-04-26] MEDS: PANTOPRAZOLE 40 MG TABLET PO SCH (16:54)
[2021-04-26] MEDS ORDERED: DEXAMETHASONE SOD PHOSPHATE 10 MG/ML 1 ML VIAL IV ONE (20:00)
[2021-04-26] MEDS: ONDANSETRON 16 MG in SODIUM CHLORIDE 0.9% 50 ML IVPB SCH (20:57)
[2021-04-26] MEDS: FAMOTIDINE 20 MG/2 ML VIAL IV SCH (20:57)
[2021-04-26] MEDS ORDERED: OLANZapine 5 MG TAB PO SCH (21:00)
[2021-04-26] MEDS: TEMAZEPAM 15 MG CAP PO SCH (21:36)
[2021-04-27] MEDS: SODIUM CHLORIDE 0.9% 1,000 ML IV SCH ×2 (01:58→12:13)
[2021-04-27 06:33] LABS: Basophils % (A) 0 %; Eosinophils # (A) 0.1 k/uL (0-0.7); Eosinophils % (A) 1 %; HCT 35.5 % (34.0-46.0); Lymphocytes # (A) 0.4 k/uL (1.0-4.8); Lymphocytes % (A) 8 %; MCH 34.5 pg (25.0-35.0); MCHC 33.9 g/dL (31.0-37.0); MCV 101.7 fL (80.0-100.0); Macrocytosis Slight; Mean Platelet Volume 9.2; Monocytes # (A) 0.5 k/uL (0-1.0); Monocytes % (A) 9 %; Neutrophils # (A) 4.7 k/uL (1.3-7.7); Neutrophils % (A) 81 %; Platelet Count 85 k/uL (150-450); RBC 3.49 m/uL (3.80-5.40); RDW 13.7 % (11.5-15.5); WBC 5.9 k/uL (3.8-10.6)
[2021-04-27] MEDS: PANTOPRAZOLE 40 MG TABLET PO SCH (08:04)
[2021-04-27] MEDS: CHLORTHALIDONE 25 MG TAB PO SCH (08:04)
[2021-04-27] MEDS: SENNOSIDES-DOCUSATE SODIUM 1 EACH TAB PO SCH (08:04)
[2021-04-27] MEDS: NICOTINE 14MG/24HR PATCH TRANSDERM SCH (08:04)
[2021-04-27] MEDS: prednisoLONE ACETATE 1% OPHTH DROPS 5 ML BTL BOTH EYES SCH ×2 (08:05→12:14)
[2021-04-27] MEDS: NON FORMULARY DRUG (Lisdexamfetamine Dimesylate [Vyvanse] 50 MG Capsule) PO SCH (08:05)
[2021-04-27] MEDS: NON FORMULARY DRUG (Buprenorphine Hcl/Naloxone Hcl [Suboxone 8 Mg-2 Mg Sl Film] 1 EACH Fil SUBLINGUAL SCH ×2 (08:05→12:15)
[2021-04-27] MEDS: FAMOTIDINE 20 MG/2 ML VIAL IV SCH (08:05)
[2021-04-27] MEDS: ONDANSETRON 16 MG in SODIUM CHLORIDE 0.9% 50 ML IVPB SCH (08:05)
[2021-04-27] MEDS: SALT AND SODA MOUTHWASH 1,000 ML PO SCH ×2 (08:06→12:13)
[2021-04-27] MEDS: SODIUM CHLORIDE 0.9% IV SCH (09:49)
[2021-04-27] MEDS: CYTARABINE IV SCH (09:49)
[2021-04-27 10:19] LABS: African American GFR (CKD) 93.5 (60.0-200.0); Albumin 3.7 g/dL (3.80-4.90); Albumin/Globulin Ratio 2.31 (1.60-3.17); Anion Gap 2.9 mmol/L (4.00-12.00); Calcium 8.7 mg/dL (8.7-10.3); Carbon Dioxide 30.1 mmol/L (21.6-31.8); Globulin 1.6 g/dL (1.6-3.3); Magnesium 1.6 mg/dL (1.5-2.4); Non-African American GFR(CKD) 80.7 (60.0-200.0); Phosphorus 3.4 mg/dL (2.4-5.1); Potassium 4.1 mmol/L (3.5-5.5); Total Bilirubin 0.4 mg/dL (0.3-1.2); Total Protein 5.3 g/dL (6.2-8.2); Uric Acid 5.2 mg/dL (2.9-7.7)
[2021-04-27 12:03] VITALS: BP 108/67; PULSE 69; RESP 16; TEMP 98.6
--- NOTE | 2021-04-27 23:46 | P.PN ---
Subjective Progress Note Date: 04/27/21 Principal diagnosis: Mantel Cell Lymphoma, Timed Consolidation Chemo. Pre Stem Cell Transplant Objective - Vital Signs Vital signs: Vital Signs Temp 98.7 F 04/27/21 04:00 Pulse 74 04/27/21 04:00 Resp 18 04/27/21 04:00 BP 136/72 04/27/21 04:00 Pulse Ox 98 04/27/21 04:00 Intake & Output 04/26/21 04/27/21 04/27/21 18:59 06:59 18:59 Intake Total 1750 1150 Balance 1750 1150 Intake: Intake, IV Titration 1750 550 Amount Cytarabine/Pf 3,000 mg 500 500 Cytarabine/Pf 500 mg In Sodium Chloride 0.9% 500 ml 500 ml @ 185 mls/hr IV Q12H [facility] Rx#:[id number] Ondansetron 16 mg In 50 Sodium Chloride 0.9% 50 ml @ 232 mls/hr IVPB BID [facility] Rx#:[id number] Ondansetron 16 mg In 50 Sodium Chloride 0.9% 50 ml @ 232 mls/hr IVPB Q24H [facility] Rx#:[id number] Sodium Chloride 0.9% 1, 1200 000 ml @ 100 mls/hr IV . Q10H [facility] Rx#:[id number] Oral 600 Other: Voiding Method Toilet # Voids 3 - Exam Alert and Oriented x3 NAD Neck:Supple ENT: Dry Mucous Membranes, no thrush or mucocytitis Heart: RRR Lungs: CTA Bilateral, No increased effort Abdomen: Soft, ND, NT Skin: No rashes Extremities: No Edema, Positive Pulses No Palpable Lymph Nodes Psych: Anxious Neuro: Non-Focal - Labs CBC & Chem 7: 04/27/21 05:42 04/27/21 05:42 Labs: Abnormal Lab Results - Last 24 Hours (Table) 04/26/21 04/27/21 Range/Units 06:57 05:42 RBC 3.49 L (3.80-5.40) m/uL MCV 101.7 H (80.0-100.0) fL Plt Count 85 L (150-450) k/uL Lymphocytes # 0.4 L (1.0-4.8) k/uL Glucose 129 H (70-110) mg/dL Alkaline Phosphatase 139 H (41-126) U/L Total Protein 5.6 L (6.2-8.2) g/dL Albumin 3.70 L (3.80-4.90) g/dL Assessment and Plan (1) Mantle cell lymphoma Status: Acute Code(s): C83.10 - MANTLE CELL LYMPHOMA, UNSPECIFIED SITE SNOMED Code(s): 598911812 Plan: Rituxan and Cytarabine Day one to begin CBC, CMP, Mag, Phos, LDH Daily Increased activity PPI and VTE (Pneumatic compression and encourage out of bed and walking) Medical Management Picc Line Placement on 04.25.21 Tolerated day one of treatment well, complete treatment today and plan for neulasta in office tomorrow DISCHARGE today
--- NOTE | 2021-04-27 23:48 | P.DS ---
Providers Date of admission: 04/25/21 08:56 Expected date of discharge: 04/27/21 Attending physician: Kiana Corea Consults: 04/26/21 11:33 Consult Physician Routine Consulting Provider: Shefali Gonzalez Consult Reason/Comments: Medical management Do you want consulting provider notified?: Yes Primary care physician: Kurt Singh MD - Discharge Diagnosis(es) (1) Mantle cell lymphoma Status: Acute Hospital Course: Rituxan and Cytarabine followed by neulasta Plan - Discharge Summary Discharge Rx Participant: No New Discharge Prescriptions: Continue Buprenorphine HCl/Naloxone HCl [Suboxone 8 mg-2 mg Sl Film] 1 film SL TID Chlorthalidone [Hygroton] 25 mg PO DAILY Lisdexamfetamine Dimesylate [Vyvanse] 100 mg PO DAILY Eszopiclone [Lunesta] 3 mg PO HS Nicotine 14Mg/24Hr Patch [Habitrol] 1 patch TRANSDERM DAILY Discontinued EPINEPHrine (Auto Inject) [Epipen] 0.3 mg IM ONCE PRN PRN Reason: Anaphylaxis Discharge Medication List Buprenorphine HCl/Naloxone HCl [Suboxone 8 mg-2 mg Sl Film] 1 film SL TID 12/12/20 [History] Chlorthalidone [Hygroton] 25 mg PO DAILY 12/12/20 [History] Lisdexamfetamine Dimesylate [Vyvanse] 100 mg PO DAILY 12/12/20 [History] Eszopiclone [Lunesta] 3 mg PO HS 12/30/20 [History] Nicotine 14Mg/24Hr Patch [Habitrol] 1 patch TRANSDERM DAILY 04/25/21 [History] Follow up Appointment(s)/Referral(s): Kiana Corea MD [STAFF PHYSICIAN] - 05/02/21 11:45 am Patient Instructions/Handouts: Filgrastim (By injection), Non-Hodgkin Lymphoma (DC), Eating During Cancer Treatment (DC), Self Care Measures With Cancer (DC), Mouth Care for the Cancer Patient (DC), Chemo Induced Nausea and Vomiting (DC), Intravenous Chemotherapy (DC), Peripherally Inserted Central Catheters and Midline Catheters (DC) Activity/Diet/Wound Care/Special Instructions: Please come to [facility] at 4:00pm for Filgrastim injection on Saturday, 04/27. Discharge Disposition: HOME SELF-CARE
== END 2021-04-27 17:31 | disposition home or self-care (01) | DRG 847 ==
LOC: 5NMEDONC 08:56
PROVIDERS: ADMIT Internal Medicine Hematology & Oncology; ATTEND Internal Medicine Hematology & Oncology
PROC: B5181ZA Fluoroscopy of Superior Vena Cava using Low Osmolar Contrast, Guidance (ICD-10-PCS; 2021-04-25)
PROC: B548ZZA Ultrasonography of Superior Vena Cava, Guidance (ICD-10-PCS; 2021-04-25)
PROC: 3E0330M Introduction of Antineoplastic, Monoclonal Antibody, into Peripheral Vein, Percutaneous Approach (ICD-10-PCS; 2021-04-25)
PROC: 02HV33Z Insertion of Infusion Device into Superior Vena Cava, Percutaneous Approach (ICD-10-PCS; principal; 2021-04-25 14:50)
DX: Z51.11 Encounter for antineoplastic chemotherapy (principal); C83.10 Mantle cell lymphoma, unspecified site; I10 Essential (primary) hypertension; M79.7 Fibromyalgia; G47.33 Obstructive sleep apnea (adult) (pediatric); D69.6 Thrombocytopenia, unspecified; K21.9 Gastro-esophageal reflux disease without esophagitis; H50.9 Unspecified strabismus; M72.2 Plantar fascial fibromatosis; Z87.891 Personal history of nicotine dependence; Z79.2 Long term (current) use of antibiotics; Z90.710 Acquired absence of both cervix and uterus; Z91.030 Bee allergy status; Z79.899 Other long term (current) drug therapy; Z90.49 Acquired absence of other specified parts of digestive tract; Z96.653 Presence of artificial knee joint, bilateral
CPT/HCPCS: 36573; 80053; 83615; 83735; 84100; 84550; 85025; 85610

== ENCOUNTER → 2021-05-05 | Outpatient (CLI) | payer BC ==
--- NOTE | 2021-05-05 16:03 | CT ---
EXAMINATION TYPE: CT brain wo con DATE OF EXAM: 05/05/2021 COMPARISON: None INDICATION: Lymphoma, headache. Burst vessel in RT eye Stat hold and call for Dr. Corea DLP: 1125.50 mGycm, Automated exposure control for dose reduction was used. CONTRAST: None CT of the brain is performed utilizing 3 mm thick sections through the posterior fossa and 3 mm thick sections through the remaining calvarium. Study is performed within 24 hours of arrival to the hosp ital. No abnormal hyperdensity is present to suggest an acute intracranial hemorrhage. No mass lesion is evident. No acute infarcts are evident. May be a tiny lacunar infarct within the right basal ganglion. Ventricles and sulci are appropriate for the patient age. Paranasal sinuses and mastoid air cells within the [id number] are clear. The globes appear symmetrical. Intraconal and extraconal fat appears unremarkable. No intraocular abn ormalities identified. IMPRESSIONS: 1. No acute intracranial process. 2. Orbits as visualized on this brain study appear unremarkable. Closer evaluation is required, consi sam MRI or CT of the orbits.
== END | disposition home or self-care (01) ==
LOC: RADCTMAIN 15:19
PROVIDERS: ATTEND Internal Medicine Hematology & Oncology
DX: C85.90 Non-Hodgkin lymphoma, unspecified, unspecified site (principal); R51.9 Headache, unspecified
CPT/HCPCS: 70450

== ENCOUNTER 2021-05-16 09:13 | Inpatient (IN) | payer BC ==
[2021-05-16] MEDS ORDERED: NON FORMULARY DRUG (Epinephrine (Auto Inject) 0.3 MG/0.3 ML Each) IM PRN (11:13)
[2021-05-16 11:55] LABS: Anisocytosis Slight; Basophils # (A) 0.1 k/uL (0-0.2); Basophils % (A) 0 %; Eosinophils # (A) 0.1 k/uL (0-0.7); Eosinophils % (A) 1 %; Hyperchromasia Moderate; Lymphocytes # (A) 0.8 k/uL (1.0-4.8); Lymphocytes % (A) 5 %; MCH 34.4 pg (25.0-35.0); Macrocytosis Slight; Mean Platelet Volume 8.2; Monocytes # (A) 1.4 k/uL (0-1.0); Monocytes % (A) 10 %; Neutrophils # (A) 11.3 k/uL (1.3-7.7); Neutrophils % (A) 80 %; Poikilocytosis Slight; RDW 16.9 % (11.5-15.5); WBC 14.2 k/uL (3.8-10.6)
[2021-05-16 11:56] LABS: ALT 21 U/L (4-34); AST 23 U/L (14-36); African American GFR (CKD) >90 (>60 ml/min/1.73 sqM); Albumin 3.6 g/dL (3.5-5.0); Albumin/Globulin Ratio 1.5; Alkaline Phosphatase 292 U/L (38-126); Anion Gap 7 mmol/L; Blood Urea Nitrogen 17 mg/dL (7-17); Calcium 9.1 mg/dL (8.4-10.2); Carbon Dioxide 31 mmol/L (22-30); Chloride 98 mmol/L (98-107); Globulin 2.4 g/dL; Glucose 125 mg/dL (74-99); Non-African American GFR(CKD) >90 (>60 ml/min/1.73 sqM); Phosphorus 3.8 mg/dL (2.5-4.5); Potassium 3.7 mmol/L (3.5-5.1); Sodium 136 mmol/L (137-145); Total Bilirubin 0.3 mg/dL (0.2-1.3); Uric Acid 4.8 mg/dL (3.7-7.4)
[2021-05-16 12:01] LABS: HGB 7.9 gm/dL (11.4-16.0); MCV 95.6 fL (80.0-100.0)
[2021-05-16 12:02] LABS: Platelet Count 592 k/uL (150-450)
[2021-05-16] MEDS: SODIUM CHLORIDE 0.9% 1,000 ML IV SCH ×2 (12:46→19:20)
[2021-05-16] MEDS: NICOTINE 14MG/24HR PATCH TRANSDERM SCH (12:47)
[2021-05-16] MEDS: ONDANSETRON 16 MG in SODIUM CHLORIDE 0.9% 50 ML IVPB SCH (12:48)
[2021-05-16] MEDS: prednisoLONE ACETATE 1% OPHTH DROPS 5 ML BTL BOTH EYES SCH ×4 (12:48→20:57)
[2021-05-16] MEDS ORDERED: FAMOTIDINE 20 MG/2 ML VIAL IVP SCH (13:00)
[2021-05-16] MEDS ORDERED: methylPREDNISolone SOD SUCCI 125 MG/2 ML VIAL IVP ONE (13:00)
[2021-05-16] MEDS ORDERED: diphenhydrAMINE 50 MG/ML 1 ML VIAL IVP ONE (13:00)
--- NOTE | 2021-05-16 13:17 | P.HPIM ---
History of Present Illness H&P Date: 05/16/21 Chief Complaint: Admit for CIVI rituxan and cytarabine for mantle cell lymphoma Pt continuing on treatment of Mantel Cell Lymphoma. She is status post treatment with Bendamustine and Rituxan, PET in March revealed complete response after 3 cycles, therefore she is now admitted for treatment with Rituxan and Cytarabine. Plan for SCT Dr. Diamond after 3 cycles, this is cycle #2. She denied any complications after her last admit, no fevers or significant SE. She feels goo d. Appetite is good. Independently ambulatory. No fevers, oral irritation, N, cough, abd pain or distension, constipation or diarrhea, swelling, rash, bleeding or pain. Review of Systems 14 point ROS is neg except as stated in HPI Past Medical History Past Medical History: Cancer, Fibromyalgia, GERD/Reflux, Hypertension, Sleep Apnea/CPAP/BIPAP Additional Past Medical History / Comment(s): Mantel cell lymphoma, CLAUDIA-no treatment since wt loss, suboxone is for fibromyalgia pain. History of Any Multi-Drug Resistant Organisms: None Reported Past Surgical History: Appendectomy, Bladder Surgery, Hysterectomy, Orthopedic Surgery Additional Past Surgical History / Comment(s): 12/14/20 excision R cervical lymph node, 01/03/21 BMA with biopsy, bilateral knee arthroscopies, R foot surgery for plantar fascitis, eye surgery for strabismus, colonoscopy. Past Anesthesia/Blood Transfusion Reactions: No Reported Reaction Past Psychological History: No Psychological Hx Reported Additional Psychological History / Comment(s): Pt resides with her spouse. She is independent. Smoking Status: Former smoker Past Alcohol Use History: None Reported Additional Past Alcohol Use History / Comment(s): Pt started smoking in 1979 and has been an on/off smoker since. She states she stopped smoking and went to nicotine patch last week. Past Drug Use History: None Reported - Past Family History Father Sister(s) Family Medical History: Cancer Additional Family Medical History / Comment(s): father - kidney cancer survivor Brother(s) Family Medical History: Cancer Additional Family Medical History / Comment(s): colon cancer survivor Sister(s) Family Medical History: Cancer Additional Family Medical History / Comment(s): breast cancer survivor Mother Family Medical History: No Reported History Additional Family Medical History / Comment(s): Mother is 87yrs old. Medications and Allergies Home Medications Medication Instructions Recorded Confirmed Type Buprenorphine HCl/Naloxone HCl 1 film SL TID 12/12/20 05/16/21 History [Suboxone 8 mg-2 mg Sl Film] Chlorthalidone [Hygroton] 25 mg PO DAILY 12/12/20 05/16/21 History Lisdexamfetamine Dimesylate 100 mg PO DAILY 12/12/20 05/16/21 History [Vyvanse] Eszopiclone [Lunesta] 3 mg PO HS 12/30/20 05/16/21 History Nicotine 14Mg/24Hr Patch [Habitrol] 1 patch TRANSDERM DAILY 04/25/21 05/16/21 History EPINEPHrine (Auto Inject) [Epipen] 0.3 mg IM ONCE PRN 05/16/21 05/16/21 History Potassium Chloride ER [K-Dur 20] 20 meq PO DAILY 05/16/21 05/16/21 History Allergies Allergy/AdvReac Type Severity Reaction Status Date / Time bee venom protein (honey bee) Allergy Anaphylaxis Verified 05/16/21 10:13 Physical Exam Vitals: Vital Signs Temp Pulse Resp BP Pulse Ox 05/16/21 09:45 97.7 F 70 17 99/67 100 Intake and Output 05/15/21 05/16/21 05/16/21 22:59 06:59 14:59 Other: Weight 72.09 kg - Constitutional General appearance: average body habitus, cooperative, no acute distress - EENT Eyes: anicteric sclerae, EOMI ENT: hearing grossly normal, normal oropharynx - Neck Neck: no lymphadenopathy - Respiratory Respiratory: bilateral: CTA - Cardiovascular Rhythm: regular Heart sounds: normal: S1, S2 Abnormal Heart Sounds: no systolic murmur, no diastolic murmur, no rub, no S3 Gallop, no S4 Gallop, no click, no other leg Peripheral Edema: bilateral: None - Gastrointestinal General gastrointestinal: no absent bowel sounds, no decreased bowel sounds, no distended, no hepatomegaly, no hyperactive bowel sounds, normal bowel sounds, no organomegaly, no rigid, no scaphoid, soft, no splenomegaly, no tenderness, no umbilical hernia, no ventral hernia - Integumentary Integumentary: normal - Neurologic Neurologic: CNII-XII intact - Musculoskeletal Musculoskeletal: strength equal bilaterally - Psychiatric Psychiatric: A&O x's 3, appropriate affect, intact judgment & insight Results CBC & Chem 7: 05/16/21 11:11 05/16/21 11:11 Thrombosis Risk Factor Assmnt - DVT/VTE Prophylaxis DVT/VTE Prophylaxis: Pharmacologic Prophylaxis ordered - Choose All That Apply Each Factor Represents 1 point: Age 41-60 years Thrombosis Risk Factor Assessment Total Risk Factor Score: 1 Thrombosis Risk Factor Assessment Level: Low Risk Assessment and Plan (1) Mantle cell lymphoma Narrative/Plan: Admit for CIVI Cytarabine and Rituxan GI and DVT prophylaxis Supportive meds Pred eye drops Regular diet Ad zoila activity, out of bed for all meals [place] fluids VS monitoring Labs and f/u daily Home meds reconciled Neulasta on DC Current Visit: Yes Status: Chronic Priority: High Code(s): C83.10 - MANTLE CELL LYMPHOMA, UNSPECIFIED SITE SNOMED Code(s): 808395654 (2) Insomnia Narrative/Plan: Home meds ordered, lunesta Current Visit: Yes Status: Chronic Priority: Low Code(s): G47.00 - INSOMNIA, UNSPECIFIED SNOMED Code(s): 249522554 (3) Nicotine dependence Narrative/Plan: Nicotine patch Current Visit: Yes Status: Chronic Priority: High Code(s): F17.200 - NICOTINE DEPENDENCE, UNSPECIFIED, UNCOMPLICATED SNOMED Code(s): 18698075 Plan: Doctor attests: I performed a history and physical examination of this patient, developed impression and plan of care, discussed with dictator. I agree with dictators note, documented as a scribe.
[2021-05-16] MEDS ORDERED: RITUXIMAB PVVR IV ONE (14:00)
[2021-05-16] MEDS ORDERED: SODIUM CHLORIDE 0.9% IV ONE (14:00)
[2021-05-16] MEDS ORDERED: CYTARABINE IV SCH (14:00)
[2021-05-16] MEDS ORDERED: SODIUM CHLORIDE 0.9% IV SCH (14:00)
[2021-05-16] MEDS: SALT AND SODA MOUTHWASH 1,000 ML PO SCH ×3 (14:39→20:57)
[2021-05-16] MEDS: NON FORMULARY DRUG (Buprenorphine Hcl/Naloxone Hcl [Suboxone 8 Mg-2 Mg Sl Film] 1 EACH Fil SUBLINGUAL SCH ×2 (14:39→21:00)
[2021-05-16] MEDS: TEMAZEPAM 15 MG CAP PO SCH (20:57)
[2021-05-17] MEDS: SODIUM CHLORIDE 0.9% 1,000 ML IV SCH ×3 (04:10→23:45)
[2021-05-17] MEDS: SODIUM CHLORIDE 0.9% IV SCH ×2 (05:59→17:58)
[2021-05-17] MEDS: CYTARABINE IV SCH ×2 (05:59→17:58)
[2021-05-17] MEDS: ENOXAPARIN 40 MG/0.4 ML SYRINGE SQ SCH (07:52)
[2021-05-17] MEDS: POTASSIUM CHLORIDE ER 20 MEQ TAB.ER PO SCH (07:52)
[2021-05-17] MEDS: SALT AND SODA MOUTHWASH 1,000 ML PO SCH ×4 (07:53→20:59)
[2021-05-17] MEDS: NICOTINE 14MG/24HR PATCH TRANSDERM SCH (07:53)
[2021-05-17] MEDS: prednisoLONE ACETATE 1% OPHTH DROPS 5 ML BTL BOTH EYES SCH ×4 (07:53→20:59)
[2021-05-17] MEDS: NON FORMULARY DRUG (Lisdexamfetamine Dimesylate [Vyvanse] 50 MG Capsule) PO SCH (08:20)
[2021-05-17] MEDS: NON FORMULARY DRUG (Buprenorphine Hcl/Naloxone Hcl [Suboxone 8 Mg-2 Mg Sl Film] 1 EACH Fil SUBLINGUAL SCH ×3 (08:27→20:59)
[2021-05-17] MEDS: CHLORTHALIDONE 25 MG TAB PO SCH (08:37)
[2021-05-17 08:47] LABS: Anisocytosis Slight; Basophils % (A) 0 %; Eosinophils % (A) 0 %; HCT 21.8 % (34.0-46.0); HGB 7.4 gm/dL (11.4-16.0); Lymphocytes # (A) 0.4 k/uL (1.0-4.8); Lymphocytes % (A) 3 %; MCH 34.1 pg (25.0-35.0); MCHC 34.2 g/dL (31.0-37.0); MCV 99.8 fL (80.0-100.0); Macrocytosis Slight; Mean Platelet Volume 8.9; Monocytes % (A) 7 %; Neutrophils # (A) 12.2 k/uL (1.3-7.7); Neutrophils % (A) 88 %; Platelet Count 453 k/uL (150-450); Poikilocytosis Slight; RBC 2.18 m/uL (3.80-5.40); RDW 16.9 % (11.5-15.5); WBC 13.9 k/uL (3.8-10.6)
[2021-05-17 09:11] LABS: ALT 20 U/L (4-34); AST 21 U/L (14-36); African American GFR (CKD) >90 (>60 ml/min/1.73 sqM); Albumin 3.2 g/dL (3.5-5.0); Albumin/Globulin Ratio 1.3; Alkaline Phosphatase 257 U/L (38-126); Anion Gap 6 mmol/L; Blood Urea Nitrogen 16 mg/dL (7-17); Calcium 8.8 mg/dL (8.4-10.2); Carbon Dioxide 28 mmol/L (22-30); Chloride 105 mmol/L (98-107); Globulin 2.4 g/dL; Glucose 115 mg/dL (74-99); Non-African American GFR(CKD) >90 (>60 ml/min/1.73 sqM); Phosphorus 3.7 mg/dL (2.5-4.5); Sodium 139 mmol/L (137-145); Total Bilirubin 0.2 mg/dL (0.2-1.3); Total Protein 5.6 g/dL (6.3-8.2); Uric Acid 4.5 mg/dL (3.7-7.4)
--- NOTE | 2021-05-17 15:45 | P.PN ---
Subjective Progress Note Date: 05/17/21 Principal diagnosis: CIVI Rituxan and cytarabine, mantle cell lymphoma. In f/u pt denies fever, oral irritation, appetite is good, no N,V, cough, SOB, chest heaviness, palpitations, abd pain, bloating, concerns for constipation, no diarrhea, swelling in the legs, bleeding or rash. She is ambulatory independently. Objective - Vital Signs Vital signs: Vital Signs Temp 97.7 F 05/17/21 11:49 Pulse 82 05/17/21 11:49 Resp 18 05/17/21 11:49 BP 110/54 05/17/21 11:49 Pulse Ox 96 05/17/21 11:49 Intake & Output 05/16/21 05/17/21 05/17/21 18:59 06:59 18:59 Intake Total 2199 Balance 2199 Weight 72.09 kg 74.389 kg Intake: Intake, IV Titration 4292.555 4611 Amount Cytarabine/Pf 3,000 mg 500 Cytarabine/Pf 500 mg In Sodium Chloride 0.9% 500 ml 500 ml @ 185 mls/hr IV Q12H [facility] Rx#:[id number] Ondansetron 16 mg In 50 Sodium Chloride 0.9% 50 ml @ 232 mls/hr IVPB DAILY@1300 [facility] Rx#: [id number] Sodium Chloride 0.9% 1, 700 1200 000 ml @ 100 mls/hr IV . Q10H [facility] Rx#:[id number] riTUXimab PVVR 700 mg In 461.933 Sodium Chloride 0.9% 500 ml 500 ml @ Titrate IV . Q0M [facility] Rx#:[id number] Oral 800 500 Other: Voiding Method Toilet Toilet # Voids 3 3 - Constitutional General appearance: Present: average body habitus, cooperative, no acute distress - EENT Eyes: Present: anicteric sclerae, EOMI ENT: Present: hearing grossly normal, normal oropharynx - Respiratory Respiratory: bilateral: CTA - Cardiovascular Rhythm: regular Heart sounds: normal: S1, S2 Abnormal Heart Sounds: Absent: systolic murmur, diastolic murmur, rub, S3 Gallop, S4 Gallop, click, other - Peripheral edema leg Peripheral Edema: bilateral: None - Gastrointestinal General gastrointestinal: Present: normal bowel sounds, soft. Absent: absent bowel sounds, decreased bowel sounds, distended, hepatomegaly, hyperactive bowel sounds, organomegaly, rigid, scaphoid, splenomegaly, tenderness, umbilical hernia, ventral hernia - Integumentary Integumentary: Present: normal - Neurologic Neurologic: Present: CNII-XII intact - Musculoskeletal Musculoskeletal: Present: strength equal bilaterally - Psychiatric Psychiatric: Present: A&O x's 3, appropriate affect, intact judgment & insight - Labs CBC & Chem 7: 05/17/21 08:29 05/17/21 08:29 Labs: Abnormal Lab Results - Last 24 Hours (Table) 05/17/21 05/17/21 Range/Units 08:29 08:29 WBC 13.9 H (3.8-10.6) k/uL RBC 2.18 L (3.80-5.40) m/uL Hgb 7.4 L (11.4-16.0) gm/dL Hct 21.8 L (34.0-46.0) % RDW 16.9 H (11.5-15.5) % Plt Count 453 H (150-450) k/uL Neutrophils # 12.2 H (1.3-7.7) k/uL Lymphocytes # 0.4 L (1.0-4.8) k/uL Glucose 115 H (74-99) mg/dL Alkaline Phosphatase 257 H (38-126) U/L Total Protein 5.6 L (6.3-8.2) g/dL Albumin 3.2 L (3.5-5.0) g/dL Assessment and Plan (1) Mantle cell lymphoma Narrative/Plan: Admit for CIVI Cytarabine and Rituxan, day 2 of 3 GI and DVT prophylaxis Supportive meds Pred eye drops Regular diet Ad zoila activity, out of bed for all meals [place] fluids VS monitoring Labs and f/u daily Home meds reconciled Neulasta on DC Current Visit: Yes Status: Chronic Priority: High Code(s): C83.10 - MANTLE CELL LYMPHOMA, UNSPECIFIED SITE SNOMED Code(s): 776733891 (2) Insomnia Narrative/Plan: Home meds ordered, lunesta Current Visit: Yes Status: Chronic Priority: Low Code(s): G47.00 - INSOMNIA, UNSPECIFIED SNOMED Code(s): 600575747 (3) Nicotine dependence Narrative/Plan: Nicotine patch Current Visit: Yes Status: Chronic Priority: High Code(s): F17.200 - NICOTINE DEPENDENCE, UNSPECIFIED, UNCOMPLICATED SNOMED Code(s): 78370574
[2021-05-17] MEDS: ONDANSETRON 16 MG in SODIUM CHLORIDE 0.9% 50 ML IVPB SCH (16:24)
[2021-05-17] MEDS ORDERED: DEXAMETHASONE SOD PHOSPHATE 10 MG/ML 1 ML VIAL IV ONE (17:00)
[2021-05-17] MEDS ORDERED: FAMOTIDINE 20 MG/2 ML VIAL IVP ONE (17:00)
[2021-05-17] MEDS: TEMAZEPAM 15 MG CAP PO SCH (20:59)
[2021-05-17 23:49] VITALS: RESP 18
[2021-05-18 04:16] VITALS: TEMP 97.7
[2021-05-18] MEDS: CYTARABINE IV SCH (05:49)
[2021-05-18] MEDS: SODIUM CHLORIDE 0.9% IV SCH (05:49)
[2021-05-18 06:29] LABS: Anisocytosis Slight; Basophils % (A) 0 %; Eosinophils % (A) 0 %; HCT 22.3 % (34.0-46.0); HGB 7.4 gm/dL (11.4-16.0); Lymphocytes # (A) 0.2 k/uL (1.0-4.8); Lymphocytes % (A) 2 %; MCH 33.8 pg (25.0-35.0); MCHC 33.3 g/dL (31.0-37.0); MCV 101.5 fL (80.0-100.0); Macrocytosis Slight; Mean Platelet Volume 8.8; Monocytes # (A) 0.4 k/uL (0-1.0); Monocytes % (A) 3 %; Neutrophils # (A) 10.8 k/uL (1.3-7.7); Neutrophils % (A) 95 %; Platelet Count 407 k/uL (150-450); Poikilocytosis Slight; RDW 16.8 % (11.5-15.5); WBC 11.4 k/uL (3.8-10.6)
[2021-05-18 07:47] LABS: ALT 25 U/L (4-34); AST 26 U/L (14-36); African American GFR (CKD) >90 (>60 ml/min/1.73 sqM); Albumin 3.1 g/dL (3.5-5.0); Albumin/Globulin Ratio 1.3; Alkaline Phosphatase 240 U/L (38-126); Anion Gap 5 mmol/L; Blood Urea Nitrogen 19 mg/dL (7-17); Calcium 8.9 mg/dL (8.4-10.2); Carbon Dioxide 28 mmol/L (22-30); Chloride 107 mmol/L (98-107); Globulin 2.4 g/dL; Glucose 121 mg/dL (74-99); Non-African American GFR(CKD) >90 (>60 ml/min/1.73 sqM); Potassium 4.4 mmol/L (3.5-5.1); Sodium 140 mmol/L (137-145); Total Bilirubin 0.2 mg/dL (0.2-1.3); Total Protein 5.5 g/dL (6.3-8.2)
[2021-05-18] MEDS: NON FORMULARY DRUG (Lisdexamfetamine Dimesylate [Vyvanse] 50 MG Capsule) PO SCH (08:34)
[2021-05-18] MEDS: NON FORMULARY DRUG (Buprenorphine Hcl/Naloxone Hcl [Suboxone 8 Mg-2 Mg Sl Film] 1 EACH Fil SUBLINGUAL SCH (08:48)
[2021-05-18] MEDS: CHLORTHALIDONE 25 MG TAB PO SCH (08:49)
[2021-05-18] MEDS: ENOXAPARIN 40 MG/0.4 ML SYRINGE SQ SCH (08:49)
[2021-05-18] MEDS: POTASSIUM CHLORIDE ER 20 MEQ TAB.ER PO SCH (08:49)
[2021-05-18] MEDS: NICOTINE 14MG/24HR PATCH TRANSDERM SCH (08:49)
[2021-05-18] MEDS: SALT AND SODA MOUTHWASH 1,000 ML PO SCH (08:50)
[2021-05-18] MEDS: prednisoLONE ACETATE 1% OPHTH DROPS 5 ML BTL BOTH EYES SCH (08:50)
[2021-05-18 08:58] VITALS: BP 136/76; PULSE 80
--- NOTE | 2021-05-18 09:56 | P.DS ---
Providers Date of admission: 05/16/21 09:13 Expected date of discharge: 05/18/21 Attending physician: Kiana Corea Primary care physician: Kurt Singh MD - Discharge Diagnosis(es) (1) Mantle cell lymphoma Current Visit: Yes Status: Chronic Priority: High (2) Insomnia Current Visit: Yes Status: Chronic Priority: Low (3) Nicotine dependence Current Visit: Yes Status: Chronic Priority: High Hospital Course: Admitted for CIVI Rituxan and cytarabine over 3 days, completed today at about 6am. She has not experienced fever, chill, N,V, SOB, change in bowel habits, swelling or pain since admit. No transfusions have been necessary. She is fully ambulatory. Feels well. Assessment: WD,WN,NAD, A&OX4, oral mucosa free of thrush, lesions, BBS CTA, chest expansion symmetrical, skin warm and dry to touch, no swelling in the legs Procedures: none Patient Condition at Discharge: Stable Plan - Discharge Summary New Discharge Prescriptions: No Action Buprenorphine HCl/Naloxone HCl [Suboxone 8 mg-2 mg Sl Film] 1 film SL TID Chlorthalidone [Hygroton] 25 mg PO DAILY Potassium Chloride ER [K-Dur 20] 20 meq PO DAILY Lisdexamfetamine Dimesylate [Vyvanse] 100 mg PO DAILY Eszopiclone [Lunesta] 3 mg PO HS Nicotine 14Mg/24Hr Patch [Habitrol] 1 patch TRANSDERM DAILY EPINEPHrine (Auto Inject) [Epipen] 0.3 mg IM ONCE PRN PRN Reason: Anaphylaxis Discharge Medication List Buprenorphine HCl/Naloxone HCl [Suboxone 8 mg-2 mg Sl Film] 1 film SL TID 12/12/20 [History] Chlorthalidone [Hygroton] 25 mg PO DAILY 12/12/20 [History] Lisdexamfetamine Dimesylate [Vyvanse] 100 mg PO DAILY 12/12/20 [History] Eszopiclone [Lunesta] 3 mg PO HS 12/30/20 [History] Nicotine 14Mg/24Hr Patch [Habitrol] 1 patch TRANSDERM DAILY 04/25/21 [History] EPINEPHrine (Auto Inject) [Epipen] 0.3 mg IM ONCE PRN 05/16/21 [History] Potassium Chloride ER [K-Dur 20] 20 meq PO DAILY 05/16/21 [History] Follow up Appointment(s)/Referral(s): Kiana Corea MD [STAFF PHYSICIAN] - 05/19/21 2:00 pm (this is for GCSF injetion and to make further follow up appts) Activity/Diet/Wound Care/Special Instructions: Activity as tolerated Diet as tolerated [place] fluids Temperature monitoring. Contact ofc for temp 100.5F or return to hospital Complete entire bottle of steroid eye drops Neulasta injection in ofc 24 hours after completion of chemo Discharge Disposition: HOME SELF-CARE Plan of Treatment: Dr chaidezests: I have seen and examined pt, performed H&P, developed impression and plan. Discussed with dictator, agree with documentation, documented as a scribe. Pending Studies Pending Results: none
== END 2021-05-18 11:20 | disposition home or self-care (01) | DRG 847 ==
LOC: 5NMEDONC 09:13
PROVIDERS: ADMIT Internal Medicine Hematology & Oncology; ATTEND Internal Medicine Hematology & Oncology
PROC: XW033B3 Introduction of Cytarabine and Daunorubicin Liposome Antineoplastic into Peripheral Vein, Percutaneous Approach, New Technology Group 3 (ICD-10-PCS; principal; 2021-05-16)
PROC: XW0DXR5 Introduction of Venetoclax Antineoplastic into Mouth and Pharynx, External Approach, New Technology Group 5 (ICD-10-PCS; 2021-05-16)
DX: Z51.11 Encounter for antineoplastic chemotherapy (principal); C83.10 Mantle cell lymphoma, unspecified site; G47.00 Insomnia, unspecified; M79.7 Fibromyalgia; K21.9 Gastro-esophageal reflux disease without esophagitis; I10 Essential (primary) hypertension; G47.33 Obstructive sleep apnea (adult) (pediatric); F17.200 Nicotine dependence, unspecified, uncomplicated; Z90.710 Acquired absence of both cervix and uterus; Z98.890 Other specified postprocedural states; Z79.891 Long term (current) use of opiate analgesic; Z79.899 Other long term (current) drug therapy; Z80.51 Family history of malignant neoplasm of kidney; Z80.0 Family history of malignant neoplasm of digestive organs; Z80.3 Family history of malignant neoplasm of breast
CPT/HCPCS: 80053; 84100; 84550; 85025

== ENCOUNTER 2021-06-19 09:43 | Inpatient (IN) | payer BC ==
[2021-06-15 13:31] VITALS: BMI 25.8
[~2021-06-19 09:43] MED LIST changes: -LACTATED RINGERS 1,000 ML IV SCH; -ONDANSETRON 4 MG/2 ML VIAL IVP PRN; +Pre Op ABX Message 1 EACH MISC MISCELLANE ONE
[2021-06-19 10:14] VITALS: RESP 16
[2021-06-19] MEDS ORDERED: LIDOCAINE 1% INJ 10MG/ML (20 ML MDV) SQ ONE (11:04)
--- NOTE | 2021-06-19 11:36 | IR ---
PICC LINE PLACEMENT: HISTORY: Infection requiring long-term antibiotic therapy PROCEDURE: Ultrasound and fluoroscopic guidance of PICC line placement. COMPLICATIONS: None ANESTHESIA: 1. 1% Lidocaine locally. FINDINGS/TECHNIQUE: The procedure was explained to the patient. The risks, complications, benefits and alternatives were discussed and any questions were answered. Informed consent was obtained. The patient was placed supine on the fluoroscopic table and prepped and draped in the usual sterile fash ion. Utilizing a 21 gauge needle and sonographic and fluoroscopic guidance, access in the left basi lic vein was achieved and there is placement of a 0.018 guidewire. The vein is patent. A 4-F sheath was placed over the guidewire. The guidewire and dilator were removed and a 4-F. PICC line was plac ed through the sheath with the tip at the level of the SVC. The sheath was removed, the catheter was flushed and sutured into position. The patient was stable throughout the procedure and remained sta ble upon discharge from the Department of Radiology. The vein puncture was patent under ultrasound. A chau scale image was obtained to document patency of the vein punctured. All elements of the maximal barrier technique were utilized. FLUOROSCOPY TIME: 0.3 minutes and one image submitted IMPRESSION: Successful PICC line placement under ultrasound and fluoroscopic guidance.
[2021-06-19] MEDS: prednisoLONE ACETATE 1% OPHTH DROPS 5 ML BTL BOTH EYES SCH ×4 (11:38→21:33)
[2021-06-19] MEDS: SODIUM CHLORIDE 0.9% 1,000 ML IV SCH ×2 (11:42→21:33)
[2021-06-19] MEDS ORDERED: diphenhydrAMINE 50 MG/ML 1 ML VIAL IVP ONE (13:00)
[2021-06-19] MEDS ORDERED: methylPREDNISolone SOD SUCCI 125 MG/2 ML VIAL IVP ONE (13:00)
[2021-06-19] MEDS ORDERED: EPINEPHrine (PF) 1 MG/ML AMP IM PRN (13:04)
[2021-06-19 13:24] LABS: ALT 17 U/L (4-34); AST 22 U/L (14-36); African American GFR (CKD) >90 (>60 ml/min/1.73 sqM); Albumin 4.4 g/dL (3.5-5.0); Albumin/Globulin Ratio 1.8; Alkaline Phosphatase 154 U/L (38-126); Anion Gap 6 mmol/L; Blood Urea Nitrogen 18 mg/dL (7-17); Calcium 9.6 mg/dL (8.4-10.2); Carbon Dioxide 31 mmol/L (22-30); Chloride 97 mmol/L (98-107); Globulin 2.4 g/dL; Glucose 115 mg/dL (74-99); LDH 423 U/L (313-618); Non-African American GFR(CKD) >90 (>60 ml/min/1.73 sqM); Phosphorus 3.7 mg/dL (2.5-4.5); Potassium 4.1 mmol/L (3.5-5.1); Sodium 134 mmol/L (137-145); Total Bilirubin 0.7 mg/dL (0.2-1.3); Total Protein 6.8 g/dL (6.3-8.2); Uric Acid 5.3 mg/dL (3.7-7.4)
[2021-06-19 13:31] LABS: Anisocytosis Moderate; HCT 29.9 % (34.0-46.0); MCH 36.8 pg (25.0-35.0); MCHC 35.2 g/dL (31.0-37.0); MCV 104.6 fL (80.0-100.0); Macrocytosis Marked; Mean Platelet Volume 12.5; Poikilocytosis Slight; RBC 2.86 m/uL (3.80-5.40); RDW 20.4 % (11.5-15.5); WBC 5.6 k/uL (3.8-10.6)
[2021-06-19 13:40] LABS: HGB 10.5 gm/dL (11.4-16.0)
[2021-06-19] MEDS: FAMOTIDINE 20 MG/2 ML VIAL IV SCH (13:55)
[2021-06-19] MEDS: SALT AND SODA MOUTHWASH 1,000 ML PO SCH ×2 (13:55→19:13)
[2021-06-19] MEDS ORDERED: SODIUM CHLORIDE 0.9% IV NR (14:00)
[2021-06-19] MEDS ORDERED: RITUXIMAB PVVR IV NR (14:00)
[2021-06-19] MEDS: ONDANSETRON 16 MG in SODIUM CHLORIDE 0.9% 50 ML IVPB SCH (14:02)
[2021-06-19 14:13] LABS: Eosinophils # (M) 0.11 k/uL (0-0.7); Lymphocytes # (M) 0.62 k/uL (1.0-4.8); Monocytes # (M) 1.06 k/uL (0-1.0); Neutrophils # (M) 3.81 k/uL (1.3-7.7); Neutrophils % (M) 68 %; Nucleated Red Blood Cells 0 /100 WBC (0-0); Total Cells Counted 100
[2021-06-19] MEDS: NON FORMULARY DRUG (Buprenorphine Hcl/Naloxone Hcl [Suboxone 8 Mg-2 Mg Sl Film] 1 EACH Fil SUBLINGUAL SCH ×2 (17:44→20:51)
--- NOTE | 2021-06-19 19:09 | P.HPIM ---
History of Present Illness H&P Date: 06/19/21 Chief Complaint: Mantle Cell Lymphoma-Timed Chemo Cycle #3 Clare is admitted today for Cycle 3 of Rituxan and Cytarabine. Plan per primary oncologist is after completion of cycle 3, she will be referred back to Dr. Diamond to determine next treatment plan as CAR-T versus Stem Cell Transplant. Her blood counts took a little longer to recover this round. She has had a Picc line placed today in Left upper extremitiy and today beginning day one of chemotherapy cycle 3 Review of Systems All systems: negative Constitutional: Reports as per HPI Past Medical History Past Medical History: Cancer, Fibromyalgia, GERD/Reflux, Hypertension, Sleep Apnea/CPAP/BIPAP Additional Past Medical History / Comment(s): Mantel cell lymphoma dx December 2020, CLAUDIA-no treatment since wt loss, suboxone is for fibromyalgia pain. History of Any Multi-Drug Resistant Organisms: None Reported Past Surgical History: Appendectomy, Bladder Surgery, Hysterectomy, Orthopedic Surgery Additional Past Surgical History / Comment(s): 12/14/20 excision R cervical lymph node, 01/03/21 BMA with biopsy, bilateral knee arthroscopies, R foot surgery for plantar fascitis, eye surgery for strabismus, colonoscopy, PICC Line Insertion left upper arm on 06/19/21 Past Anesthesia/Blood Transfusion Reactions: No Reported Reaction Past Psychological History: No Psychological Hx Reported Additional Psychological History / Comment(s): Pt resides with her spouse. She is independent. Smoking Status: Former smoker Past Alcohol Use History: None Reported Additional Past Alcohol Use History / Comment(s): Pt started smoking in 1979 and has been an on/off smoker since. She states she stopped smoking and went to nicotine patch. Past Drug Use History: None Reported - Past Family History Father Sister(s) Family Medical History: Cancer Additional Family Medical History / Comment(s): Kidney cancer survivor. Brother(s) Family Medical History: Cancer Additional Family Medical History / Comment(s): Colon cancer survivor. Sister(s) Family Medical History: Cancer Additional Family Medical History / Comment(s): Breast cancer survivor. Mother Family Medical History: No Reported History Additional Family Medical History / Comment(s): Mother is 87yrs old. Medications and Allergies Home Medications Medication Instructions Recorded Confirmed Type Buprenorphine HCl/Naloxone HCl 1 film SL TID 12/12/20 06/19/21 History [Suboxone 8 mg-2 mg Sl Film] Chlorthalidone [Hygroton] 25 mg PO DAILY 12/12/20 06/19/21 History Lisdexamfetamine Dimesylate 100 mg PO DAILY 12/12/20 06/19/21 History [Vyvanse] Eszopiclone [Lunesta] 3 mg PO HS 12/30/20 06/19/21 History Nicotine 14Mg/24Hr Patch [Habitrol] 1 patch TRANSDERM DAILY 04/25/21 06/19/21 History EPINEPHrine (Auto Inject) [Epipen] 0.3 mg IM ONCE PRN 05/16/21 06/15/21 History Potassium Chloride ER [K-Dur 20] 20 meq PO DAILY 05/16/21 06/19/21 History Allergies Allergy/AdvReac Type Severity Reaction Status Date / Time bee venom protein (honey bee) Allergy Anaphylaxis Verified 06/15/21 13:20 Physical Exam Vitals: Vital Signs Temp Pulse Resp BP Pulse Ox 06/19/21 12:04 98.1 F 74 16 113/62 97 06/19/21 10:05 98.3 F 95 16 141/67 99 Intake and Output 06/18/21 06/19/21 06/19/21 22:59 06:59 14:59 Other: Weight 72.575 kg - Constitutional General appearance: cooperative, no acute distress - EENT Eyes: EOMI ENT: NA/AT - Neck Neck: normal ROM - Respiratory Respiratory: bilateral: CTA - Cardiovascular Rhythm: regular - Gastrointestinal General gastrointestinal: normal bowel sounds, soft - Integumentary Integumentary: pale - Neurologic Neurologic: CNII-XII intact - Musculoskeletal Musculoskeletal: generalized weakness, strength equal bilaterally - Psychiatric Psychiatric: A&O x's 3, appropriate affect, intact judgment & insight Results CBC & Chem 7: 06/19/21 12:52 06/19/21 12:52 Thrombosis Risk Factor Assmnt - DVT/VTE Prophylaxis DVT/VTE Prophylaxis: Mechanical Prophylaxis ordered - Choose All That Apply Any of the Below Risk Factors Present?: Yes Each Factor Represents 1 point: Age 41-60 years Other Risk Factors: Yes Each Risk Factor Represents 2 Points: Malignancy Other congenital or acquired thrombophilia - If yes, enter type in comment: No Thrombosis Risk Factor Assessment Total Risk Factor Score: 3 Thrombosis Risk Factor Assessment Level: Moderate Risk Assessment and Plan (1) Mantle cell lymphoma Current Visit: No Status: Chronic Priority: High Code(s): C83.10 - MANTLE CELL LYMPHOMA, UNSPECIFIED SITE SNOMED Code(s): 892923141 (2) Nicotine dependence Current Visit: No Status: Chronic Priority: High Code(s): F17.200 - NICOTINE DEPENDENCE, UNSPECIFIED, UNCOMPLICATED SNOMED Code(s): 59046202 Plan: Home medications ordered Daily labs, monitoring for tumor lysis Supportive care Cycle #3 Rituxan and Cytarabine Day #1 today and plan for Neulasta in office at discharge.
[2021-06-19] MEDS: SODIUM CHLORIDE 0.9% IV SCH (19:12)
[2021-06-19] MEDS: CYTARABINE IV SCH (19:12)
[2021-06-19] MEDS: TEMAZEPAM 15 MG CAP PO SCH (21:31)
[2021-06-20] MEDS: SALT AND SODA MOUTHWASH 1,000 ML PO SCH ×5 (00:25→18:59)
[2021-06-20 04:32] LABS: Anisocytosis Moderate; HCT 27.3 % (34.0-46.0); HGB 9.9 gm/dL (11.4-16.0); MCH 38.4 pg (25.0-35.0); MCHC 36.2 g/dL (31.0-37.0); MCV 106.2 fL (80.0-100.0); Macrocytosis Marked; Mean Platelet Volume 12.3; Poikilocytosis Slight; RBC 2.57 m/uL (3.80-5.40); WBC 3.9 k/uL (3.8-10.6)
[2021-06-20 04:55] LABS: Band Neutrophils % 2 %; Lymphocytes # (M) 0.47 k/uL (1.0-4.8); Monocytes # (M) 0.23 k/uL (0-1.0); Neutrophils % (M) 80 %; Nucleated Red Blood Cells 0 /100 WBC (0-0); Total Cells Counted 100
[2021-06-20] MEDS: SODIUM CHLORIDE 0.9% IV SCH ×2 (07:31→18:58)
[2021-06-20] MEDS: CYTARABINE IV SCH ×2 (07:31→18:58)
[2021-06-20] MEDS: prednisoLONE ACETATE 1% OPHTH DROPS 5 ML BTL BOTH EYES SCH ×4 (07:39→21:26)
[2021-06-20] MEDS: NICOTINE 14MG/24HR PATCH TRANSDERM SCH (07:39)
[2021-06-20] MEDS: CHLORTHALIDONE 25 MG TAB PO SCH (07:40)
[2021-06-20] MEDS: NON FORMULARY DRUG (Buprenorphine Hcl/Naloxone Hcl [Suboxone 8 Mg-2 Mg Sl Film] 1 EACH Fil SUBLINGUAL SCH ×3 (07:40→21:25)
[2021-06-20] MEDS: NON FORMULARY DRUG (Lisdexamfetamine Dimesylate [Vyvanse] 50 MG Capsule) PO SCH (07:40)
[2021-06-20] MEDS: SODIUM CHLORIDE 0.9% 1,000 ML IV SCH ×2 (07:40→17:51)
[2021-06-20 11:49] LABS: Mean Platelet Volume 10.8
[2021-06-20 11:52] LABS: Platelet Count 155 k/uL (150-450)
--- NOTE | 2021-06-20 14:12 | P.PN ---
Subjective Progress Note Date: 06/20/21 Principal diagnosis: Manlet cell lymphoma, admit for cycle 3 CIVI chemo In f/u pt denies oral irritation, N,V, SOB, cough, abd pain, distension, changes in bowel or bladder, swelling. She is ambulating independently, eating and drinking in adequate amounts, only very mild side effects. Objective - Vital Signs Vital signs: Vital Signs Temp 96.8 F L 06/20/21 12:00 Pulse 70 06/20/21 12:00 Resp 16 06/20/21 12:00 BP 126/76 06/20/21 12:00 Pulse Ox 99 06/20/21 12:00 Intake & Output 06/19/21 06/20/21 06/20/21 18:59 06:59 18:59 Intake Total 621.119 5547 Balance 290.864 5202 Weight 72.575 kg 89 kg Intake: Intake, IV Titration 486.134 5388 Amount Cytarabine/Pf 3,500 mg In 500 Sodium Chloride 0.9% 500 ml 500 ml @ 225 mls/hr IV Q12H ETHAN Rx#:[id number] Sodium Chloride 0.9% 1, 1200 000 ml @ 100 mls/hr IV . Q10H ETHAN Rx#:[id number] riTUXimab PVVR 700 mg In 427.766 Sodium Chloride 0.9% 500 ml 500 ml @ Titrate IV . Q0M NR Rx#:[id number] Oral 720 Other: # Voids 3 1 - Constitutional General appearance: Present: average body habitus, cooperative, no acute distress - EENT Eyes: Present: anicteric sclerae, EOMI ENT: Present: hearing grossly normal, normal oropharynx - Respiratory Respiratory: bilateral: CTA - Cardiovascular Rhythm: regular Heart sounds: normal: S1, S2 Abnormal Heart Sounds: Absent: systolic murmur, diastolic murmur, rub, S3 Gallop, S4 Gallop, click, other - Peripheral edema leg Peripheral Edema: bilateral: None - Gastrointestinal General gastrointestinal: Present: normal bowel sounds, soft. Absent: absent bowel sounds, decreased bowel sounds, distended, hepatomegaly, hyperactive bowel sounds, organomegaly, rigid, scaphoid, splenomegaly, tenderness, umbilical hernia, ventral hernia - Integumentary Integumentary: Present: normal - Neurologic Neurologic: Present: CNII-XII intact - Musculoskeletal Musculoskeletal: Present: strength equal bilaterally - Psychiatric Psychiatric: Present: A&O x's 3, appropriate affect, intact judgment & insight - Labs CBC & Chem 7: 06/20/21 11:32 06/19/21 12:52 Labs: Abnormal Lab Results - Last 24 Hours (Table) 06/19/21 06/20/21 Range/Units 12:52 03:45 RBC 2.57 L (3.80-5.40) m/uL Hgb 9.9 L (11.4-16.0) gm/dL Hct 27.3 L (34.0-46.0) % MCV 106.2 H (80.0-100.0) fL MCH 38.4 H (25.0-35.0) pg RDW 20.0 H (11.5-15.5) % Lymphocytes # (Manual) 0.62 L 0.47 L (1.0-4.8) k/uL Monocytes # (Manual) 1.06 H (0-1.0) k/uL Macrocytosis Marked A Assessment and Plan (1) Mantle cell lymphoma Narrative/Plan: Admitted for cycle 3 of Rituxan and high dose cytarabine. No changes in treatment plan. Will complete tomorrow AM Labs for AM Cont supportive meds Daily weight Unable to read platelet count-tried checking in a citrate tube-155,000 Activity ad zoila. Diet as tolerated Nice fluids Current Visit: Yes Status: Chronic Priority: High Code(s): C83.10 - MANTLE CELL LYMPHOMA, UNSPECIFIED SITE SNOMED Code(s): 526537675 (2) Insomnia Narrative/Plan: cont home meds encouraged sleep routine Current Visit: No Status: Chronic Priority: Low Code(s): G47.00 - INSOMNIA, UNSPECIFIED SNOMED Code(s): 047455665 (3) Nicotine dependence Narrative/Plan: Cont nicotine patch Current Visit: No Status: Chronic Priority: High Code(s): F17.200 - NICOTINE DEPENDENCE, UNSPECIFIED, UNCOMPLICATED SNOMED Code(s): 51937739 Plan: attests: I have seen and examined pt, performed H&P, developed impression and plan of care. Discussed with dictator. Agree with documentation, dpocumented as a scribe.
[2021-06-20] MEDS: ONDANSETRON 16 MG in SODIUM CHLORIDE 0.9% 50 ML IVPB SCH (16:30)
[2021-06-20] MEDS: FAMOTIDINE 20 MG/2 ML VIAL IV SCH (16:30)
[2021-06-20] MEDS ORDERED: DEXAMETHASONE SOD PHOSPHATE 10 MG/ML 1 ML VIAL IV ONE (17:00)
[2021-06-20 17:46] LABS: ALT 18 U/L (4-34); AST 25 U/L (14-36); African American GFR (CKD) >90 (>60 ml/min/1.73 sqM); Albumin 3.7 g/dL (3.5-5.0); Albumin/Globulin Ratio 1.6; Alkaline Phosphatase 128 U/L (38-126); Anion Gap 5 mmol/L; Blood Urea Nitrogen 16 mg/dL (7-17); Calcium 8.9 mg/dL (8.4-10.2); Carbon Dioxide 30 mmol/L (22-30); Chloride 102 mmol/L (98-107); Globulin 2.3 g/dL; Glucose 150 mg/dL (74-99); Non-African American GFR(CKD) >90 (>60 ml/min/1.73 sqM); Potassium 4.4 mmol/L (3.5-5.1); Sodium 137 mmol/L (137-145); Total Bilirubin 0.3 mg/dL (0.2-1.3); Uric Acid 5.3 mg/dL (3.7-7.4)
[2021-06-20] MEDS: TEMAZEPAM 15 MG CAP PO SCH (21:25)
[2021-06-21] MEDS: SALT AND SODA MOUTHWASH 1,000 ML PO SCH ×3 (02:33→10:12)
[2021-06-21] MEDS: SODIUM CHLORIDE 0.9% 1,000 ML IV SCH (03:24)
[2021-06-21] MEDS: SODIUM CHLORIDE 0.9% IV SCH (07:09)
[2021-06-21] MEDS: CYTARABINE IV SCH (07:09)
[2021-06-21 07:43] LABS: Anisocytosis Slight; Basophils % (A) 0 %; Eosinophils % (A) 1 %; HCT 27.6 % (34.0-46.0); HGB 9.3 gm/dL (11.4-16.0); Lymphocytes # (A) 0.1 k/uL (1.0-4.8); Lymphocytes % (A) 3 %; MCH 36.3 pg (25.0-35.0); MCHC 33.6 g/dL (31.0-37.0); MCV 108.1 fL (80.0-100.0); Macrocytosis Marked; Mean Platelet Volume 12.8; Monocytes # (A) 0.2 k/uL (0-1.0); Monocytes % (A) 4 %; Neutrophils # (A) 4.1 k/uL (1.3-7.7); Neutrophils % (A) 92 %; Poikilocytosis Slight; RBC 2.55 m/uL (3.80-5.40); RDW 19.6 % (11.5-15.5); WBC 4.5 k/uL (3.8-10.6)
[2021-06-21 08:49] VITALS: BP 125/74; PULSE 60; TEMP 98.1
[2021-06-21] MEDS: CHLORTHALIDONE 25 MG TAB PO SCH (09:35)
[2021-06-21] MEDS: NON FORMULARY DRUG (Buprenorphine Hcl/Naloxone Hcl [Suboxone 8 Mg-2 Mg Sl Film] 1 EACH Fil SUBLINGUAL SCH (09:35)
[2021-06-21] MEDS: NON FORMULARY DRUG (Lisdexamfetamine Dimesylate [Vyvanse] 50 MG Capsule) PO SCH (09:36)
[2021-06-21] MEDS: NICOTINE 14MG/24HR PATCH TRANSDERM SCH (10:09)
[2021-06-21] MEDS: prednisoLONE ACETATE 1% OPHTH DROPS 5 ML BTL BOTH EYES SCH ×2 (10:11→12:01)
[2021-06-21 10:53] LABS: Platelet Count 109 k/uL (150-450)
[2021-06-21 11:15] LABS: African American GFR (CKD) 109.9 (60.0-200.0); Albumin 3.9 g/dL (3.8-4.9); Albumin/Globulin Ratio 2.44 (1.60-3.17); Anion Gap 10.7 mmol/L (4.00-12.00); BUN/Creat Ratio 21.14 Ratio (12.00-20.00); Blood Urea Nitrogen 14.8 mg/dL (9.0-27.0); Calcium 8.9 mg/dL (8.7-10.3); Carbon Dioxide 26.3 mmol/L (21.6-31.8); Globulin 1.6 g/dL (1.6-3.3); Non-African American GFR(CKD) 94.8 (60.0-200.0); Phosphorus 3.3 mg/dL (2.4-5.1); Potassium 4.7 mmol/L (3.5-5.5); Total Bilirubin 0.3 mg/dL (0.30-1.20); Total Protein 5.5 g/dL (6.2-8.2); Uric Acid 5.3 mg/dL (2.9-7.7)
--- NOTE | 2021-06-21 12:22 | P.DS ---
Providers Date of admission: 06/19/21 09:44 Expected date of discharge: 06/21/21 Attending physician: Edson Jay Primary care physician: Kurt Singh MD - Discharge Diagnosis(es) (1) Mantle cell lymphoma - Status Post Cycle 3 today - Will receive Neulasta on pro tomorrow - PLan to follow-up with Dr. Diamond within the next 2 weeks to determine next plan for either CAR-T versus Stem Cell transplant - Will See CORPORATE DIRECTOR OF PHARMACY in office one week to check CBC - Will see DR in 2 weeks Current Visit: Yes Status: Chronic Priority: High (2) Nicotine dependence Current Visit: No Status: Chronic Priority: High Hospital Course: Clare received her third cycle of Rituxan and Cytarabine. She is eager to go home. Will head to office to have On pro injector added for GCSF injection to administer tomorrow. Assessment: Alert and Oriented ALopecia NAD O/P no mucocytis, no thrush ABdomen: Soft, non distended Patient Condition at Discharge: Good Plan - Discharge Summary Discharge Rx Participant: No New Discharge Prescriptions: New prednisoLONE ACETATE 1% OPHTH [Pred Forte 1%] 1 drops BOTH EYES QID ml Continue Buprenorphine HCl/Naloxone HCl [Suboxone 8 mg-2 mg Sl Film] 1 film SL TID Chlorthalidone [Hygroton] 25 mg PO DAILY Potassium Chloride ER [K-Dur 20] 20 meq PO DAILY Lisdexamfetamine Dimesylate [Vyvanse] 100 mg PO DAILY Eszopiclone [Lunesta] 3 mg PO HS Nicotine 14Mg/24Hr Patch [Habitrol] 1 patch TRANSDERM DAILY EPINEPHrine (Auto Inject) [Epipen] 0.3 mg IM ONCE PRN PRN Reason: Anaphylaxis Discharge Medication List Buprenorphine HCl/Naloxone HCl [Suboxone 8 mg-2 mg Sl Film] 1 film SL TID 12/12/20 [History] Chlorthalidone [Hygroton] 25 mg PO DAILY 12/12/20 [History] Lisdexamfetamine Dimesylate [Vyvanse] 100 mg PO DAILY 12/12/20 [History] Eszopiclone [Lunesta] 3 mg PO HS 12/30/20 [History] Nicotine 14Mg/24Hr Patch [Habitrol] 1 patch TRANSDERM DAILY 04/25/21 [History] EPINEPHrine (Auto Inject) [Epipen] 0.3 mg IM ONCE PRN 05/16/21 [History] Potassium Chloride ER [K-Dur 20] 20 meq PO DAILY 05/16/21 [History] prednisoLONE ACETATE 1% OPHTH [Pred Forte 1%] 1 drops BOTH EYES QID ml 06/21/21 [Rx] Follow up Appointment(s)/Referral(s): Kiana Corea MD [STAFF PHYSICIAN] - 06/21/21 11:30 am (Pt to head over to the [facility] [place] and get the neupogen on-pro placed) Discharge Disposition: HOME SELF-CARE
--- NOTE | 2021-06-21 15:41 | P.PN ---
Subjective Progress Note Date: 06/21/21 Principal diagnosis: Timed Chemo Mantle Cell Lymphoma Tolerated cycle 3 of chemotherapy well, she is anxious for discharge. Objective - Vital Signs Vital signs: Vital Signs Temp 98.1 F 06/21/21 08:26 Pulse 60 06/21/21 08:26 Resp 16 06/21/21 08:26 BP 125/74 06/21/21 08:26 Pulse Ox 98 06/21/21 08:26 Intake & Output 06/20/21 06/21/21 06/21/21 18:59 06:59 18:59 Intake Total 1924 2419 Balance 1924 2419 Weight 90.5 kg Intake: Intake, IV Titration 1924 1700 Amount Cytarabine/Pf 3,500 mg In 675 500 Sodium Chloride 0.9% 500 ml 500 ml @ 225 mls/hr IV Q12H ETHAN Rx#:[id number] Ondansetron 16 mg In 50 Sodium Chloride 0.9% 50 ml @ 232 mls/hr IVPB Q24H ETHAN Rx#:[id number] Sodium Chloride 0.9% 1, 1200 1200 000 ml @ 100 mls/hr IV . Q10H ETHAN Rx#:[id number] Oral 720 Other: # Voids 5 1 - Constitutional General appearance: Present: cooperative - EENT Eyes: Present: EOMI, PERRLA ENT: Present: NA/AT - Respiratory Respiratory: bilateral: CTA - Cardiovascular Rhythm: regular Heart sounds: normal: S1, S2 - Gastrointestinal General gastrointestinal: Present: normal bowel sounds, soft - Integumentary Integumentary: Present: pale - Neurologic Neurologic: Present: CNII-XII intact - Musculoskeletal Musculoskeletal: Present: gait normal, generalized weakness, strength equal bilaterally - Psychiatric Psychiatric: Present: A&O x's 3, appropriate affect, intact judgment & insight - Labs CBC & Chem 7: 06/21/21 06:47 06/21/21 06:47 Labs: Abnormal Lab Results - Last 24 Hours (Table) 06/20/21 06/21/21 Range/Units 03:45 06:47 RBC 2.55 L (3.80-5.40) m/uL Hgb 9.3 L (11.4-16.0) gm/dL Hct 27.6 L (34.0-46.0) % MCV 108.1 H (80.0-100.0) fL MCH 36.3 H (25.0-35.0) pg RDW 19.6 H (11.5-15.5) % Macrocytosis Marked A Glucose 150 H (74-99) mg/dL Alkaline Phosphatase 128 H (38-126) U/L Total Protein 6.0 L (6.3-8.2) g/dL Assessment and Plan (1) Mantle cell lymphoma Status: Chronic Priority: High Code(s): C83.10 - MANTLE CELL LYMPHOMA, UNSPECIFIED SITE SNOMED Code(s): 102831597 (2) Nicotine dependence Status: Chronic Priority: High Code(s): F17.200 - NICOTINE DEPENDENCE, UNSPECIFIED, UNCOMPLICATED SNOMED Code(s): 29356493 Plan: Home medications ordered Daily labs, monitoring for tumor lysis Supportive care Cycle #3 Rituxan and Cytarabine completed Ok for discharge Outpatient office staff notified and appointment for DAY CARE WORKER CBC check in one week and 2 week follow-up visit with primary oncologist Dr. Corea Today after discharge plan for Neulasta on pro
== END 2021-06-21 13:19 | disposition home or self-care (01) | DRG 847 ==
LOC: CATHCVL 09:43 → 5NMEDONC 09:44
PROVIDERS: ADMIT Internal Medicine Hematology & Oncology; ATTEND Internal Medicine Hematology & Oncology
PROC: 02HV33Z Insertion of Infusion Device into Superior Vena Cava, Percutaneous Approach (ICD-10-PCS; 2021-06-19)
PROC: B5181ZA Fluoroscopy of Superior Vena Cava using Low Osmolar Contrast, Guidance (ICD-10-PCS; 2021-06-19)
PROC: B548ZZA Ultrasonography of Superior Vena Cava, Guidance (ICD-10-PCS; 2021-06-19)
PROC: 3E0M305 Introduction of Other Antineoplastic into Peritoneal Cavity, Percutaneous Approach (ICD-10-PCS; principal; 2021-06-19 11:00)
DX: Z51.11 Encounter for antineoplastic chemotherapy (principal); C83.18 Mantle cell lymphoma, lymph nodes of multiple sites; L65.9 Nonscarring hair loss, unspecified; F17.210 Nicotine dependence, cigarettes, uncomplicated; G47.00 Insomnia, unspecified; I10 Essential (primary) hypertension; K21.9 Gastro-esophageal reflux disease without esophagitis; M79.7 Fibromyalgia; Z91.030 Bee allergy status; Z20.822 Contact with and (suspected) exposure to COVID-19; Z79.2 Long term (current) use of antibiotics; Z79.899 Other long term (current) drug therapy; Z90.710 Acquired absence of both cervix and uterus; Z90.49 Acquired absence of other specified parts of digestive tract; Z80.51 Family history of malignant neoplasm of kidney; Z80.0 Family history of malignant neoplasm of digestive organs
CPT/HCPCS: 36573; 80053; 82306; 83615; 83735; 84100; 84550; 85025; 85049; 87635

== ENCOUNTER → 2021-07-14 | Outpatient (CLI) | payer BC ==
--- NOTE | 2021-07-15 15:34 | PE ---
EXAMINATION TYPE: PET CT fusion skull to thigh DATE OF EXAM: 07/14/2021 COMPARISON: Prior PET/CT March 31, 2021 and older studies HISTORY: Mantle cell lymphoma right neck diagnosed surgical excision December 14, 2020 . Patient comple nicole chemotherapy on June 19. TECHNIQUE: Following the intravenous administration of 10.29 mCi of F-18 FDG, whole body images are performed from the skull base to the midthigh. Images are reviewed on the computer in the coronal, a xial, and sagittal planes. Reconstructed rotating images are created on independent workstation and reviewed on the computer. A localization and attenuation correction CT is performed in conjunction with the PET scan. Blood glucose level equals 89 SCAN: Subsequent Scan FINDINGS: Mean SUV mediastinum: 1.3 Mean SUV liver: 2.58 SKULL BASE AND NECK: No suspicious recurrent enlarged or hypermetabolic lymph nodes on current study . CHEST, MEDIASTINUM, AND HILAR REGION: Fairly stable in size prominent but subcentimeter bilateral axi llary lymph nodes. Mild hypermetabolic uptake on the right, max SUV is 3.49 on axial image 77 which i s new from most recent PET/CT. ABDOMEN AND PELVIS: No new areas of abnormal hypermetabolic uptake. Normal excretion redemonstrated. OSSEOUS STRUCTURES: Mild diffuse osseous uptake currently presumed posttreatment response. No new are as of abnormal focal hypermetabolic uptake. OTHER CT: Facet arthropathy lower lumbar spine . Slight scoliotic curvature. Moderate calcified plaqu e distal abdominal aorta extends into the iliac branch vessels. IMPRESSION: Mild hypermetabolic uptake right axillary lymph node could reflect mild early active lymp albino recurrence.
== END | disposition home or self-care (01) ==
LOC: RADPETMAIN 12:44
PROVIDERS: ATTEND Internal Medicine Hematology & Oncology
DX: C83.18 Mantle cell lymphoma, lymph nodes of multiple sites (principal)
CPT/HCPCS: 78815; A9552

== ENCOUNTER → 2021-08-17 | Outpatient (CLI) | payer BC ==
--- NOTE | 2021-08-17 12:06 | XR ---
EXAMINATION TYPE: XR chest 2V DATE OF EXAM: 08/17/2021 COMPARISON: NONE TECHNIQUE: PA and lateral views submitted. HISTORY: Preop FINDINGS: The lungs are clear and there is no pneumothorax, pleural effusion, or focal pneumonia. Heart size normal. Hypertrophic and degenerative changes of the spine. No overt failure. IMPRESSION: 1. No acute process.
== END | disposition home or self-care (01) ==
LOC: RADXRMAIN 11:28
PROVIDERS: ATTEND Internal Medicine Hematology & Oncology
DX: C83.18 Mantle cell lymphoma, lymph nodes of multiple sites (principal); D61.810 Antineoplastic chemotherapy induced pancytopenia; Z71.3 Dietary counseling and surveillance
CPT/HCPCS: 71046; 93005

== ENCOUNTER → 2021-08-17 | Outpatient (CLI) | payer BC ==
--- NOTE | 2021-08-18 10:00 | ECHOF ---
Referral Reason:Z01.818 Encounter for other preprocedural examinat MEASUREMENTS -------- HEIGHT: 167.6 cm WEIGHT: 69.4 kg BP: IVSd: 1.1 cm (0.6 - 1.1) LVIDd: 4.1 cm (3.9 - 5.3) LVPWd: 1.2 cm (0.6 - 1.1) IVSs: 1.5 cm LVIDs: 2.2 cm LVPWs: 1.2 cm LAESV Index (A-L): 25.96 ml/m Ao Diam: 2.8 cm (2.0 - 3.7) AV Cusp: 1.7 cm (1.5 - 2.6) LA Diam: 4.3 cm (2.7 - 3.8) MV EXCURSION: 14.013 mm (> 18.000) MV EF SLOPE: 67 mm/s (70 - 150) EPSS: 0.3 cm MV E Jonah: 0.85 m/s MV DecT: 197 ms MV A Jonah: 0.90 m/s MV E/A Ratio: 0.94 RAP: 5.00 mmHg RVSP: 19.87 mmHg FINDINGS -------- Sinus rhythm. This was a technically adequate study. The left ventricular size is normal. There is borderline concentric left ventricular hypertrophy. Overall left ventricular systolic function is normal with, an EF between 55 - 60 %. The right ventricle is normal in size. Normal LA size by volume 22+/-6 ml/m2. The right atrial size is normal. Interatrial and interventricular septum intact. There is no evidence of aortic regurgitation. There is no evidence of aortic stenosis. There is trace mitral regurgitation. Mild tricuspid regurgitation present. There is no evidence of pulmonary hypertension. The right v entricular systolic pressure, as measured by Doppler, is 19.87mmHg. There is no pulmonic regurgitation present. The aortic root size is normal. Normal inferior vena cava with normal inspiratory collapse consistent with estimated right atrial pre ssure of 5 mmHg. There is no pericardial effusion. CONCLUSIONS -------- 1. The left ventricular size is normal. 2. There is borderline concentric left ventricular hypertrophy. 3. Overall left ventricular systolic function is normal with, an EF between 55 - 60 %. 4. There is trace mitral regurgitation. 5. Mild tricuspid regurgitation present. SMALL ARMS REPAIRER: Carmelina Salas RDCS
== END | disposition home or self-care (01) ==
LOC: RADECHMAIN 11:24
PROVIDERS: ATTEND Internal Medicine Hematology & Oncology
DX: Z01.818 Encounter for other preprocedural examination (principal); I08.1 Rheumatic disorders of both mitral and tricuspid valves
CPT/HCPCS: 93306

== ENCOUNTER → 2021-08-22 | Outpatient (CLI) | payer BC | LOC: CPPFTMAIN 08:55 | PROVIDERS: ATTEND Internal Medicine Hematology & Oncology | DX: C83.18 Mantle cell lymphoma, lymph nodes of multiple sites (principal); Z03.89 Encounter for observation for other suspected diseases and conditions ruled out; Z91.030 Bee allergy status | CPT/HCPCS: 94060; 94726; 94729 ==

== ENCOUNTER → 2022-02-02 | Outpatient (CLI) | payer BC | END | disposition home or self-care (01) | LOC: RADPETMAIN 11:37 | PROVIDERS: ATTEND Internal Medicine Hematology & Oncology | DX: Z53.9 Procedure and treatment not carried out, unspecified reason (principal) ==

== ENCOUNTER → 2022-03-02 | Outpatient (CLI) | payer BC ==
--- NOTE | 2022-03-06 18:45 | PE ---
EXAMINATION TYPE: PET CT fusion skull to thigh DATE OF EXAM: 03/02/2022 CLINICAL INDICATION:Female, 61 years old with history of C8318; TECHNIQUE: Following the intravenous administration of 13 mCi of F-18 FDG, whole body images are pe rformed from the skull base to the midthigh. Images are reviewed on the computer in the coronal, axi al, and sagittal planes. Reconstructed rotating images are created on independent workstation and re viewed on the computer. A non-contrast CT is performed in conjunction with the PET scan. COMPARISON: PET 07/14/2021 FINDINGS: SKULL BASE AND NECK: No suspicious FDG uptake. CHEST, MEDIASTINUM, AND HILAR REGION: No suspicious FDG uptake. FDG uptake seen on prior right axilla ry lymph nodes has decreased to background levels. Scattered physiologic FDG activity is present with in the musculature. ABDOMEN AND PELVIS: No suspicious FDG uptake. Scattered physiologic FDG activity is present within th e musculature OSSEOUS STRUCTURES: No suspicious FDG uptake. OTHER CT: Visualized portions of the head and neck are grossly unremarkable. There is mild atheroscle rosis of the arterial vasculature. No evidence of focal consolidation, pneumothorax or pleural effusi on. No suspicious pulmonary nodules are identified. Streaky atelectasis is present. Gallstone within the gallbladder lumen. No suspicious osseous lesions. IMPRESSION: Resolution of FDG activity within the right axillary lymph nodes. No suspicious FDG activ ity identified.
== END | disposition home or self-care (01) ==
LOC: RADPETMAIN 14:05
PROVIDERS: ATTEND Internal Medicine Hematology & Oncology
DX: C83.18 Mantle cell lymphoma, lymph nodes of multiple sites (principal)
CPT/HCPCS: 78815; A9552

== ENCOUNTER → 2022-06-01 | Outpatient (CLI) | payer BC ==
[~2022-06-01] MED LIST changes: +ACETAMINOPHEN TAB 325 MG TAB PO NR; +IMMUNE GLOBULIN (GAMMAGARD) 20 GM in EMPTY BAG 1 BAG IV NR; -Pre Op ABX Message 1 EACH MISC MISCELLANE ONE; +SODIUM CHLORIDE 0.9% 500 ML 500 ML in EMPTY BAG 1 BAG IV PRN; +diphenhydrAMINE 50 MG/ML 1 ML VIAL IVP NR; +methylPREDNISolone SOD SUCCI 125 MG/2 ML VIAL IVP NR
[2022-06-01 09:26] VITALS: RESP 16; TEMP 98.1
[2022-06-01 11:41] VITALS: BP 118/73; PULSE 70
== END ==
LOC: PROCWHC3 08:36
PROVIDERS: ATTEND Internal Medicine Hematology & Oncology
DX: C83.18 Mantle cell lymphoma, lymph nodes of multiple sites (principal); D80.1 Nonfamilial hypogammaglobulinemia; E66.9 Obesity, unspecified; Z68.21 Body mass index [BMI] 21.0-21.9, adult; Z91.030 Bee allergy status
CPT/HCPCS: 96365; 96366; 96375; J1200; J2930; J1569

== ENCOUNTER → 2022-11-30 | Outpatient (CLI) | payer OTHER ==
--- NOTE | 2022-12-02 09:42 | PE ---
EXAMINATION TYPE: PET CT fusion skull to thigh DATE OF EXAM: 11/30/2022 CLINICAL INDICATION:Female, 62 years old with history of Lymphoma; TECHNIQUE: Following the intravenous administration of 12.01 mCi of F-18 FDG, whole body images are performed from the skull base to the midthigh. Images are reviewed on the computer in the coronal, axial, and sagittal planes. Reconstructed rotating images are created on independent workstation and reviewed on the computer. A non-contrast CT is performed in conjunction with the PET scan. Glucose level 99 mg/dL COMPARISON: CT None, PET/CT 03/02/2022, FINDINGS: Mediastinal SUV mean is 1.3. Hepatic parenchyma SUV mean is 1.5 . SKULL BASE AND NECK: No suspicious radiotracer activity. CHEST, MEDIASTINUM, AND HILAR REGION: Progress and solid pulmonary nodule measuring 19 x 17 is new from prior on 02/28/2022 Max SUV 1.8. ABDOMEN AND PELVIS: No suspicious radiotracer activity. OSSEOUS STRUCTURES: No suspicious radiotracer activity. OTHER CT: Visualized portions of the head and neck are grossly unremarkable. There is mild atheroscle rosis of the arterial vasculature. No evidence of focal consolidation, pneumothorax or pleural effusi on. No suspicious pulmonary nodules are identified. Streaky atelectasis is present. Gallstone within the gallbladder lumen. No suspicious osseous lesions. IMPRESSION: 1. Right upper lobe solid and groundglass pulmonary nodule measuring up to 19 mm concerning for skye gnancy versus infection. This is new from 03/02/2022. Short-term follow-up CT chest and clinical corre lation recommended. 2. No additional abnormal FDG activity or enlarged lymph nodes.
== END | disposition home or self-care (01) ==
LOC: RADPETMAIN 17:15
PROVIDERS: ATTEND Internal Medicine Hematology & Oncology
DX: C83.18 Mantle cell lymphoma, lymph nodes of multiple sites (principal); R91.1 Solitary pulmonary nodule
CPT/HCPCS: 78815; A9552

== ENCOUNTER → 2022-12-18 | Outpatient (CLI) | payer OTHER ==
--- NOTE | 2022-12-18 12:36 | US ---
EXAMINATION TYPE: US liver DATE OF EXAM: 12/18/2022 COMPARISON: Pet/CT 11/30/2022 CLINICAL INDICATION: Female, 62 years old with history of R94.5 ABNORMAL RESULTS OF LIVER FUNCTION ST UDIES; abn liver function test. Patient has lymphoma TECHNIQUE: Multiple sonographic images of the right upper quadrant are obtained. FINDINGS: EXAM MEASUREMENTS: Liver Length: 18.2 cm Gallbladder Wall: .2 cm CBD: 0.7 cm Right Kidney: 10.2 x 3.6 x 4.0 cm Pancreas: Tail obscured by overlying bowel gas Liver: Increased echotexture of the parenchyma. No suspicious mass. Gallbladder: Shadowing calculus visualized Evidence for sonographic Izquierdo's sign: No CBD: wnl Right Kidney: No hydronephrosis or masses seen IMPRESSION: 1. No evidence for acute process. 2. Hepatic steatosis. 3. Cholelithiasis.
== END | disposition home or self-care (01) ==
LOC: RADUSWWP 09:52
PROVIDERS: ATTEND Internal Medicine Hematology & Oncology
DX: K80.20 Calculus of gallbladder without cholecystitis without obstruction (principal); K76.0 Fatty (change of) liver, not elsewhere classified; R94.5 Abnormal results of liver function studies
CPT/HCPCS: 76705

== ENCOUNTER → 2023-03-06 | Outpatient (CLI) | payer OTHER ==
[2023-03-06 09:32] LABS: African American GFR (CKD) >90 (>60 ml/min/1.73 sqM); Blood Urea Nitrogen 21 mg/dL (7-17); Non-African American GFR(CKD) >90 (>60 ml/min/1.73 sqM)
--- NOTE | 2023-03-06 11:39 | CT ---
EXAMINATION TYPE: CT chest w con DATE OF EXAM: 03/06/2023 COMPARISON: PET/CT 11/30/2022 and 03/02/2022 HISTORY: 62-year-old female C83.18, R91.1, Spot in lung hx mantle cell lymphoma TECHNIQUE: Contiguous axial scanning of the chest after the administration of 100 mL of Isovue 300. Coronal/sagittal reconstructions performed. CT DLP: 238.80mGycm. Automatic exposure control utilized for a dose reduction. FINDINGS: Heart normal size without pericardial effusion. Mild atherosclerotic arch calcifications. Chart vessel branching anatomy. No thoracic lymphadenopathy by CT size criteria. The previous metabolic focal opacity posterior right upper lung has resolved. There is a new 5 mm posterior right upper lobe pulmonary nodule, axial image 18. Otherwise, no consol idation or pleural effusion or other suspicious pulmonary nodules are seen. Visualized upper abdomen shows similar slight thickening of the left adrenal gland up to 1.3 x 0.7 cm which may be minimally increased from prior. Attention on follow-up. There is some focal fat along t he anterior falciform ligament. Mild to moderate arthroscopic calcifications especially infrarenal ab dominal aorta. Accentuated mid thoracic kyphosis. Anterior spondylosis mid to lower thoracic spine. Superior endplat e deformity T8 level. IMPRESSION: 1. The hypermetabolic opacity posterior right upper lung has resolved compatible with a previous infe ctious/inflammatory focus. 2. New 5 mm posterior right upper lobe pulmonary nodule. This is also nonspecific and should be reass essed at follow-up. 3. There may be slight asymmetric thickening now of the left adrenal gland at 1.3 x 0.7 cm that can b e reassessed at the follow-up exam as well. 4. No other suspicious nodules or lymphadenopathy.
== END | disposition home or self-care (01) ==
LOC: RADCTMAIN 08:46
PROVIDERS: ATTEND Internal Medicine Hematology & Oncology
DX: C83.18 Mantle cell lymphoma, lymph nodes of multiple sites (principal); D69.6 Thrombocytopenia, unspecified; I10 Essential (primary) hypertension; R91.1 Solitary pulmonary nodule; Z71.3 Dietary counseling and surveillance
CPT/HCPCS: 82565; 84520; 71260; 36415; Q9967

== ENCOUNTER → 2023-04-05 | Outpatient (CLI) | payer OTHER ==
--- NOTE | 2023-04-08 20:45 | MM ---
Reason for Exam: Screening (asymptomatic). Last mammogram was performed 6 year(s) and 3 month(s) ago. Patient History: Menarche at age 12. First Full-Term at age 20. Left ovary removed at age 42. Right ovary removed at age 42. Hysterectomy at age 42. Postmenopausal. Sister had breast cancer, age 55. Risk Values: Barbara 5 year model risk: 3.0%. NCI Lifetime model risk: 14.0%. Prior Study Comparison: 06/21/2009 Bilateral Screening Mammogram, [facility]. 01/10/2017 Bilateral Screening Mammogram, [facility]. Tissue Density: There are scattered fibroglandular densities. Findings: Analyzed By CAD. There is no suspicious group of microcalcifications or new suspicious mass in either breast. Overall Assessment: Negative, BI-RAD 1 Management: Screening Mammogram of both breasts in 1 year. See note below in regards to patient's increased five-year Barbara score. Patient should continue monthly self-breast exams. A clinical breast exam by your physician is recommended on an annual basis. This exam should not preclude additional follow-up of suspicious palpable abnormalities. Note on Barbara scores and lifetime risk: 1. A Barbara score greater than 3% is considered moderate risk. If this is the case, consider specialist referral to assess eligibility for a risk reducing agent. 2. If overall lifetime risk for the development of breast cancer is 20% or higher, the patient may qualify for future screening with alternating mammogram and breast MRI. Electronically signed and approved by: Sandi Elizalde M.D. Radiologist
== END | disposition home or self-care (01) ==
LOC: RADMAMWWP 14:38
PROVIDERS: ATTEND Internal Medicine Hematology & Oncology
DX: Z12.31 Encounter for screening mammogram for malignant neoplasm of breast (principal); C83.18 Mantle cell lymphoma, lymph nodes of multiple sites; D69.6 Thrombocytopenia, unspecified; R91.1 Solitary pulmonary nodule; I10 Essential (primary) hypertension; Z78.0 Asymptomatic menopausal state; Z80.3 Family history of malignant neoplasm of breast
CPT/HCPCS: 77063; 77067

== ENCOUNTER → 2023-05-28 | Outpatient (CLI) | payer OTHER ==
--- NOTE | 2023-05-28 12:31 | CT ---
EXAMINATION TYPE: CT chest w con CT DLP: 245 mGycm, Automated exposure control for dose reduction was used. 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 Sagittal and coronal reformats were created for review. Contrast used:100 mL of Isovue 300 with IV Contrast (None if empty) Oral contrast used: (None if empty) FINDINGS: LUNGS/ PLEURA: Mild centrilobular emphysema changes. Right lower lobe pulmonary nodules measuring 10 and 9 mm with some surrounding groundglass appearance. Not seen on prior. The remainder of the lungs demonstrate no additional suspicious pulmonary nodules. Additional area more anteriorly is also prese nt with similar morphology. AIRWAY: Patent and unremarkable. HEART: Size within normal limits. Mild calcifications of the coronary arteries. Mild aortic valve fredo cifications. MEDIASTINUM: No gross evidence of adenopathy. VASCULATURE: Atherosclerotic calcifications are present throughout the aorta and its branches. MUSCULOSKELETAL: Mild disc degeneration changes are present throughout the thoracolumbar spine. SOFT TISSUES/LYMPH NODES: Unremarkable. LOWER NECK: No significant findings. UPPER ABDOMEN: Diffuse low-attenuation to the liver parenchyma. Focal fatty infiltration of the falci form ligament. IMPRESSION: New right lung base pulmonary nodule with adjacent groundglass/streaky atelectasis. Findings again walker spicious for infectious/inflammatory process and less likely malignancy given short interval uptake i n prior waxing waning infection suggested.. Short-term follow-up again recommended in 3 months.
== END | disposition home or self-care (01) ==
LOC: RADCTMAIN 11:33
PROVIDERS: ATTEND Internal Medicine Hematology & Oncology
DX: C83.18 Mantle cell lymphoma, lymph nodes of multiple sites (principal); D69.6 Thrombocytopenia, unspecified; R91.1 Solitary pulmonary nodule; I10 Essential (primary) hypertension; J98.11 Atelectasis
CPT/HCPCS: 71260; Q9967

== ENCOUNTER → 2023-07-03 | Day surgery (SDC) | payer OTHER ==
[2023-07-01 09:25] VITALS: BMI 23.3
[~2023-07-03] MED LIST changes: -ACETAMINOPHEN TAB 325 MG TAB PO NR; -IMMUNE GLOBULIN (GAMMAGARD) 20 GM in EMPTY BAG 1 BAG IV NR; +LACTATED RINGERS 1,000 ML IV SCH; -SODIUM CHLORIDE 0.9% 500 ML 500 ML in EMPTY BAG 1 BAG IV PRN; -diphenhydrAMINE 50 MG/ML 1 ML VIAL IVP NR; -methylPREDNISolone SOD SUCCI 125 MG/2 ML VIAL IVP NR
== END ==
LOC: ORWHC2ENDO 13:03
PROVIDERS: ATTEND Internal Medicine Critical Care Medicine
DX: Z53.8 Procedure and treatment not carried out for other reasons (principal); R05.9 Cough, unspecified; I10 Essential (primary) hypertension; M79.7 Fibromyalgia; F90.9 Attention-deficit hyperactivity disorder, unspecified type; Z87.891 Personal history of nicotine dependence; Z85.828 Personal history of other malignant neoplasm of skin; Z79.899 Other long term (current) drug therapy; Z79.51 Long term (current) use of inhaled steroids

== ENCOUNTER → 2023-12-27 | Outpatient (CLI) | payer MEDICARE ==
--- NOTE | 2023-12-27 10:26 | XR ---
EXAMINATION TYPE: XR chest 2V DATE OF EXAM: 12/27/2023 COMPARISON: 08/17/2021 TECHNIQUE: PA and lateral views submitted. HISTORY: Cough FINDINGS: Patchy right upper lobe and left lower lobe infiltrate with tiny effusion. No pneumothorax. Heart siz e normal. Atherosclerotic change aorta. Hyperinflation compatible COPD. Mild endplate deformity midth oracic spine likely degenerative. IMPRESSION: 1. Patchy right upper lobe and left lower lobe infiltrate correlate for pneumonia. 2. COPD.
== END | disposition home or self-care (01) ==
LOC: RADXRMAIN 09:50
PROVIDERS: ATTEND Family Medicine
DX: J44.9 Chronic obstructive pulmonary disease, unspecified (principal)
CPT/HCPCS: 71046

== ENCOUNTER → 2024-01-03 | Outpatient (CLI) | payer MEDICARE ==
--- NOTE | 2024-01-03 11:19 | CT ---
EXAMINATION TYPE: CT chest w con DATE OF EXAM: 01/03/2024 COMPARISON: 05/28/2023 HISTORY: f/u lymphoma CT DLP: 236.5 mGycm Automated exposure control for dose reduction was used. CONTRAST: CT scan of the chest is performed with IV Contrast, patient injected with 100 mL of Isovue 370. FINDINGS: LUNGS: There are new areas of enhancing atelectasis at the lung bases. Previously noted areas of nodu larity right lower lobe appear to reflect atelectasis at this time. There is groundglass infiltrate r ight midlung zone and right upper lobe with areas of small nodularity seen measuring up to 5.5 mm. Ad ditional new areas of groundglass infiltrate left lower lobe superiorly medially. Left upper lobe ant eriorly both seen on image 32/73. Pleural-based groundglass density left lower lobe. Findings are mos t likely inflammatory in nature and follow-up in 3 months is recommended. MEDIASTINUM: There are no greater than 1 cm hilar or mediastinal lymph nodes. No pericardial effusi on is seen. Thoracic aorta is of normal caliber. The heart is not enlarged. UPPER ABDOMEN: No significant abnormality appreciated. OTHER: No additional significant abnormality is seen. IMPRESSION: 1. New areas of groundglass infiltrate with areas of small nodularity seen. Enhancing basilar atelect asis. The findings are likely inflammatory in nature. Clinical correlation and three-month follow-up is recommended.
== END | disposition home or self-care (01) ==
LOC: RADCTMAIN 10:23
PROVIDERS: ATTEND Internal Medicine Hematology & Oncology
DX: J98.11 Atelectasis (principal); C83.18 Mantle cell lymphoma, lymph nodes of multiple sites; R91.8 Other nonspecific abnormal finding of lung field
CPT/HCPCS: 71260; Q9967

== ENCOUNTER → 2024-09-01 | Outpatient (CLI) | payer MEDICARE ==
--- NOTE | 2024-09-02 17:37 | CT ---
EXAMINATION TYPE: CT ChestAbdPelvis w con DATE OF EXAM: 09/01/2024 11:46 AM COMPARISON: 01/03/2024 CLINICAL INDICATION: Female, 63 years old with history of C83.18 Lymphoma, hx of lymphoma obs for met s TECHNIQUE: Axial images at 5 mm thick sections. Reconstructed images in the coronal plane. Delayed images through the kidneys. Contrast used:100ml mL of Isovue 300 with IV Contrast, (none if empty) Oral contrast used: with Oral Contrast (none if empty) CT DLP: 790.50 mGycm, Automated exposure control for dose reduction was used. FINDINGS: CT CHEST: Portion of the thyroid visualized is normal. No suspicious lung nodules or focal infiltrates are present. There is a 0.8 cm pretracheal lymph node. No enlarged mediastinal or hilar adenopathy is evident The ascending aorta diameter at the level of the main pulmonary artery is 3.3 cm. The main pulmonary artery diameter at the bifurcation is 2.[address] ABDOMEN: Liver: Normal Spleen: Normal Pancreas: Normal Adrenal glands: The adrenal glands are normal. Gallbladder: Normal Kidneys: No masses are evident. No hydronephrosis is present. No cysts are present. There is some prominence of the right ureter which is incomplete. No focal obstruction is identified. Pelvic ureter appears normal caliber where visualized Aorta: Vascular calcification is within the aorta. Inferior vena cava: Normal. CT PELVIS: Loops of bowel within the abdomen and pelvis are normal. There are loops of bowel which are incom pletely distended or lack oral contrast limiting their evaluation. Appendix: Not identified. No dilated tubular structure or inflammatory change is evident. Urinary bladder: Normal. Genitourinary structures: Uterus and ovaries are not identified. Osseous structures: No suspicious lytic or sclerotic lesions. Lymphadenopathy: No suspicious periaortic or retrocaval adenopathy. No retrocrural adenopathy evident . No iliac chain or obturator canal adenopathy evident. No suspicious inguinal adenopathy. IMPRESSION: 1. No suspicious adenopathy to suggest recurrent lymphoma [facility] Chuck Camarena, , 09/02/2024 5:35 PM
== END | disposition home or self-care (01) ==
LOC: RADCTMAIN 09:24
PROVIDERS: ATTEND Internal Medicine Hematology & Oncology
DX: C83.18 Mantle cell lymphoma, lymph nodes of multiple sites (principal); R91.1 Solitary pulmonary nodule; D69.6 Thrombocytopenia, unspecified
CPT/HCPCS: 71260; 74177; Q9967